=== PATIENT | female | born 1980 | race Caucasian/White ===

== ENCOUNTER 2017-07-05 11:47 | Emergency (ER) | payer BC, OTHER ==
[2017-07-05 11:53] VITALS: TEMP 98
[2017-07-05] MEDS ORDERED: SODIUM CHLORIDE 0.9% 1,000 ML IV ONE (12:03)
[2017-07-05 12:27] LABS: Basophils % (A) 0 %; CH 29.6; CHCM 33.1; Eosinophils # (A) 0.2 k/uL (0-0.7); Eosinophils % (A) 2 %; HCT 38.5 % (34.0-46.0); HDW 2.41; HGB 12.3 gm/dL (11.4-16.0); Luc # (Auto) 0.06; Luc % (Auto) 1; Lymphocytes # (A) 2.3 k/uL (1.0-4.8); Lymphocytes % (A) 21 %; MCH 28.7 pg (25.0-35.0); MCHC 31.9 g/dL (31.0-37.0); MCV 89.8 fL (80.0-100.0); Mean Platelet Volume 7.1; Monocytes # (A) 0.3 k/uL (0-1.0); Monocytes % (A) 3 %; Neutrophils % (A) 73 %; RBC 4.29 m/uL (3.80-5.40); RDW 13.3 % (11.5-15.5); WBC (Perox) 10.72
[2017-07-05 12:49] LABS: ALT 27 U/L (9-52); AST 21 U/L (14-36); Alkaline Phosphatase 81 U/L (38-126); Anion Gap 10 mmol/L; Blood Urea Nitrogen 6 mg/dL (7-17); Calcium 8.9 mg/dL (8.4-10.2); Carbon Dioxide 18 mmol/L (22-30); Chloride 109 mmol/L (98-107); Glucose 114 mg/dL (74-99); Magnesium 1.6 mg/dL (1.6-2.3); Non-African American GFR(MDRD) >60 (>60 ml/min/1.73 sqM); Phosphorous 3.3 mg/dL (2.5-4.5); Sodium 137 mmol/L (137-145); Total Bilirubin 0.3 mg/dL (0.2-1.3); Total Protein 6.3 g/dL (6.3-8.2)
[2017-07-05 12:58] VITALS: RESP 18
[2017-07-05 12:59] LABS: Prothrombin Time 9.9 sec (9.0-12.0)
--- NOTE | 2017-07-05 13:10 | ED ---
General Adult HPI - General Chief complaint: Vaginal Bleeding Stated complaint: bleeding Time Seen by Provider: 07/05/17 11:57 Source: patient, RN notes reviewed, old records reviewed Mode of arrival: wheelchair Limitations: no limitations - History of Present Illness Initial comments: This is a 37-year-old female to the ER for evaluation regarding vaginal bleeding. Patient is a prior miscarriage currently undergoing miscarriage. Patient states she is having significant bleeding today. She states she is about 10 weeks . No nausea no vomiting no feelings of lightheadedness or dizziness. Patient has had multiple Occasions with prior pregnancies including preeclampsia high blood pressure and diabetes. Patient states she has been having some bleeding for a few days and knows that she was having a miscarriage but the bleeding was more excessive today and with clots. Patient has mild abdominal cramping but no pain. - Related Data Home Medications Medication Instructions Recorded Confirmed Aspirin [Adult Low Dose Aspirin EC] 81 mg PO DAILY 07/05/17 07/05/17 HYDROcodone/APAP 5-325MG [[place] 1 tab PO Q4HR PRN 07/05/17 07/05/17 5-325] Ibuprofen [Motrin] 600 mg PO Q6HR PRN 07/05/17 07/05/17 Ranitidine HCl [Zantac] 150 mg PO HS 07/05/17 07/05/17 Allergies Allergy/AdvReac Type Severity Reaction Status Date / Time adhesive Allergy Verified 07/05/17 12:11 albuterol Allergy Verified 07/05/17 12:11 amoxicillin Allergy Verified 07/05/17 12:11 ampicillin Allergy Verified 07/05/17 12:11 azithromycin [From Zithromax] Allergy Verified 07/05/17 12:11 erythromycin base Allergy Verified 07/05/17 12:11 latex Allergy Verified 07/05/17 12:11 penicillin V Allergy Verified 07/05/17 12:11 Review of Systems ROS Statement: Those systems with pertinent positive or pertinent negative responses have been documented in the HPI. ROS Other: All systems not noted in ROS Statement are negative. Past Medical History Past Medical History: Myocardial Infarction ([place]) History of Any Multi-Drug Resistant Organisms: MRSA Date of last positivie culture/infection: 2014 MDRO Source:: abscess abdomen Past Surgical History: Section Past Psychological History: No Psychological Hx Reported Smoking Status: Current every day smoker Past Alcohol Use History: None Reported Past Drug Use History: None Reported General Exam Limitations: no limitations General appearance: alert, in no apparent distress Head exam: Present: atraumatic, normocephalic, normal inspection Eye exam: Present: normal appearance, PERRL, EOMI. Absent: scleral icterus, conjunctival injection, periorbital swelling ENT exam: Present: normal exam, mucous membranes moist Neck exam: Present: normal inspection. Absent: tenderness, meningismus, lymphadenopathy Respiratory exam: Present: normal lung sounds bilaterally. Absent: respiratory distress, wheezes, rales, rhonchi, stridor Cardiovascular Exam: Present: regular rate, normal rhythm, normal heart sounds. Absent: systolic murmur, diastolic murmur, rubs, gallop, clicks GI/Abdominal exam: Present: soft, normal bowel sounds. Absent: distended, tenderness, guarding, rebound, rigid Extremities exam: Present: normal inspection, full ROM, normal capillary refill. Absent: tenderness, pedal edema, joint swelling, calf tenderness Back exam: Present: normal inspection Neurological exam: Present: alert, oriented X3, CN II-XII intact Psychiatric exam: Present: normal affect, normal mood Skin exam: Present: warm, dry, intact, normal color. Absent: rash Course Vital Signs 07/05/17 07/05/17 07/05/17 11:49 12:53 13:00 Temperature 98 F Pulse Rate 104 H 80 89 Respiratory 16 18 18 Rate Blood Pressure 134/77 128/75 118/70 O2 Sat by Pulse 100 96 97 Oximetry 07/05/17 14:00 Temperature Pulse Rate 87 Respiratory 18 Rate Blood Pressure 109/62 O2 Sat by Pulse 98 Oximetry - Reevaluation(s) Reevaluation #1: 07/05/17 13:09 The patient's resting comfortably at this time, no significant bleeding noted Reevaluation #2: 07/05/17 14:15 Vaginal exam completed, blood evacuated from patient's vaginal vault Medical Decision Making - Medical Decision Making 37 female currently going to miscarriage, labwork is normal he will is normal, patient is asymptomatic, patient's bleeding is persistent. Patient will be discharged home - Lab Data Result diagrams: 07/05/17 12:19 07/05/17 12:19 Lab Results 07/05/17 07/05/17 07/05/17 Range/Units 12:19 12:19 12:19 WBC (3.8-10.6) k/uL RBC (3.80-5.40) m/uL Hgb (11.4-16.0) gm/dL Hct (34.0-46.0) % MCV (80.0-100.0) fL MCH (25.0-35.0) pg MCHC (31.0-37.0) g/dL RDW (11.5-15.5) % Plt Count (150-450) k/uL Neutrophils % % Lymphocytes % % Monocytes % % Eosinophils % % Basophils % % Neutrophils # (1.3-7.7) k/uL Lymphocytes # (1.0-4.8) k/uL Monocytes # (0-1.0) k/uL Eosinophils # (0-0.7) k/uL Basophils # (0-0.2) k/uL PT 9.9 (9.0-12.0) sec INR 1.0 (<1.2) APTT 23.0 (22.0-30.0) sec Sodium 137 (137-145) mmol/L Potassium 4.0 (3.5-5.1) mmol/L Chloride 109 H (98-107) mmol/L Carbon Dioxide 18 L (22-30) mmol/L Anion Gap 10 mmol/L BUN 6 L (7-17) mg/dL Creatinine 0.61 (0.52-1.04) mg/dL Est GFR (MDRD) Af Amer >60 (>60 ml/min/1.73 sqM) Est GFR (MDRD) Non-Af >60 (>60 ml/min/1.73 sqM) Glucose 114 H (74-99) mg/dL Calcium 8.9 (8.4-10.2) mg/dL Phosphorus 3.3 (2.5-4.5) mg/dL Magnesium 1.6 (1.6-2.3) mg/dL Total Bilirubin 0.3 (0.2-1.3) mg/dL AST 21 (14-36) U/L ALT 27 (9-52) U/L Alkaline Phosphatase 81 (38-126) U/L Total Protein 6.3 (6.3-8.2) g/dL Albumin 3.5 (3.5-5.0) g/dL HCG, Quant 2574.6 mIU/mL Blood Type A Positive Blood Type Recheck CABO Indicated Antibody Screen NEGATIVE Spec Expiration Date 07/08/2017231807/05/17 Range/Units 12:19 WBC 11.0 H (3.8-10.6) k/uL RBC 4.29 (3.80-5.40) m/uL Hgb 12.3 (11.4-16.0) gm/dL Hct 38.5 (34.0-46.0) % MCV 89.8 (80.0-100.0) fL MCH 28.7 (25.0-35.0) pg MCHC 31.9 (31.0-37.0) g/dL RDW 13.3 (11.5-15.5) % Plt Count 273 (150-450) k/uL Neutrophils % 73 % Lymphocytes % 21 % Monocytes % 3 % Eosinophils % 2 % Basophils % 0 % Neutrophils # 8.0 H (1.3-7.7) k/uL Lymphocytes # 2.3 (1.0-4.8) k/uL Monocytes # 0.3 (0-1.0) k/uL Eosinophils # 0.2 (0-0.7) k/uL Basophils # 0.0 (0-0.2) k/uL PT (9.0-12.0) sec INR (<1.2) APTT (22.0-30.0) sec Sodium (137-145) mmol/L Potassium (3.5-5.1) mmol/L Chloride (98-107) mmol/L Carbon Dioxide (22-30) mmol/L Anion Gap mmol/L BUN (7-17) mg/dL Creatinine (0.52-1.04) mg/dL Est GFR (MDRD) Af Amer (>60 ml/min/1.73 sqM) Est GFR (MDRD) Non-Af (>60 ml/min/1.73 sqM) Glucose (74-99) mg/dL Calcium (8.4-10.2) mg/dL Phosphorus (2.5-4.5) mg/dL Magnesium (1.6-2.3) mg/dL Total Bilirubin (0.2-1.3) mg/dL AST (14-36) U/L ALT (9-52) U/L Alkaline Phosphatase (38-126) U/L Total Protein (6.3-8.2) g/dL Albumin (3.5-5.0) g/dL HCG, Quant mIU/mL Blood Type Blood Type Recheck Antibody Screen Spec Expiration Date - Radiology Data Radiology results: report reviewed (Ultrasound positive for demise), image reviewed Disposition Clinical Impression: Incomplete , Missed , Vaginal bleeding Disposition: HOME SELF-CARE Condition: Good Instructions: Miscarriage (ED) Referrals: Kecia Lopez MD [Primary Care Provider] - 1-2 days
[2017-07-05] MEDS ORDERED: MORPHINE SULFATE 10 MG/ML SYRINGE IVP STA (13:11)
[2017-07-05] MEDS ORDERED: diphenhydrAMINE 50 MG/ML 1 ML VIAL IVP STA (13:33)
--- NOTE | 2017-07-05 13:52 | US ---
EXAMINATION TYPE: US OB <= 14 wk fetus DATE OF EXAM: 07/05/2017 COMPARISON: NONE CLINICAL HISTORY: Patient having heavy bleeding and severe cramping. Patient states that she has know for 3 or 4 weeks that she did not have a viable . They were waiting for her to miscarry due to the fact that she is not a candidate for D &C due the fact that she recently had a heart attack. Patient morbidly obese. EXAM PERFORMED: Transabdominal (TA) EXAM MEASUREMENTS: GESTATIONAL AGE / DATING Physician Established: not established Dates by LMP: (14 weeks/0 days) EDC: 01/03/18 Dates by First Scan: not available Dates by Current Scan for: Unable to date by today's study MATERNAL ANATOMY Uterus: 12.5 x 6.2 x 7.2cm Right Ovary: 2.4 x 1.8 x1.8cm Left Ovary: 3.4 x 2.5 x 3.0cm Post CDS / Adnexa: wnl GESTATION / SURVEY MSD: 1.7cm (6 weeks/3 days) Date of LMP: 03/29/17 Probable gestational sac seen in lower uterine segment. Findings suggestive of a cystic focus associated with the left ovary IMPRESSION: Transabdominal imaging shows possible gestational sac as described. Imaging not optimal. Follow-up as indicated. No pole identified.
[2017-07-05 14:04] VITALS: BP 109/62; PULSE 87
== END 2017-07-05 15:13 | disposition home or self-care (01) ==
LOC: EC 11:47
DX: O03.4 Incomplete spontaneous abortion without complication (principal); O99.411 Diseases of the circulatory system complicating pregnancy, first trimester; I25.2 Old myocardial infarction; O99.331 Smoking (tobacco) complicating pregnancy, first trimester; F17.200 Nicotine dependence, unspecified, uncomplicated; Z3A.10 10 weeks gestation of pregnancy; Z86.14 Personal history of Methicillin resistant Staphylococcus aureus infection; Z79.82 Long term (current) use of aspirin; Z79.899 Other long term (current) drug therapy; Z88.0 Allergy status to penicillin; Z88.1 Allergy status to other antibiotic agents; Z91.040 Latex allergy status; Z88.8 Allergy status to other drugs, medicaments and biological substances; Z91.048 Other nonmedicinal substance allergy status
CPT/HCPCS: 99284 ×2; 96374 ×2; 96361 ×2; 36415; 86900; 86901; 80053; 83735; 84100; 85025; 85610; 85730; 86850; 84702; 76801; J2270

== ENCOUNTER 2017-07-06 11:40 | Emergency (ER) | payer BC ==
[2017-07-06] MEDS ORDERED: KETOROLAC 30 MG/ML 1 ML VIAL IVP STA (12:10)
[2017-07-06] MEDS ORDERED: LORazepam 2 MG/ML INJ IV STA (12:10)
[2017-07-06 12:40] LABS: Basophils % (A) 0 %; CH 29.3; CHCM 32.9; Eosinophils # (A) 0.2 k/uL (0-0.7); Eosinophils % (A) 1 %; HCT 31.7 % (34.0-46.0); HDW 2.47; HGB 10.3 gm/dL (11.4-16.0); Luc # (Auto) 0.07; Luc % (Auto) 0; Lymphocytes # (A) 1.7 k/uL (1.0-4.8); Lymphocytes % (A) 12 %; MCH 29.1 pg (25.0-35.0); MCHC 32.5 g/dL (31.0-37.0); MCV 89.5 fL (80.0-100.0); Mean Platelet Volume 7.4; Monocytes # (A) 0.4 k/uL (0-1.0); Monocytes % (A) 3 %; Neutrophils # (A) 12.7 k/uL (1.3-7.7); Neutrophils % (A) 84 %; RBC 3.54 m/uL (3.80-5.40); RDW 13.4 % (11.5-15.5); WBC (Perox) 14.38
[2017-07-06 12:45] LABS: Appearance,Urine Cloudy (Clear); Bilirubin,Urine 2+ (Negative); Glucose,Urine (UA) Negative (Negative); Ketones,Urine Trace (Negative); Leukocyte Esterase,Urine Moderate (Negative); Mucus,Urine Few /hpf; Nitrite,Urine Negative (Negative); Particle Count 7705; Protein,Urine 1+ (Negative); RBC,Urine >182 /hpf (0-5); Specific Gravity,Urine 1.025 (1.001-1.035); Squamous Epithelial Cell,Urine 1 /hpf (0-4); UA Billing (MACRO vs. MICRO) MICRO; WBC,Urine 9 /hpf (0-5)
--- NOTE | 2017-07-06 13:02 | ED ---
Abdominal Pain HPI - General Chief Complaint: Abdominal Pain Stated Complaint: Abd Pain Time Seen by Provider: 07/06/17 11:46 Source: patient, EMS, RN notes reviewed Mode of arrival: EMS Limitations: no limitations - History of Present Illness Initial Comments: This a 37-year-old female presents emergency Department via EMS from chief complaint abdominal pain and vaginal bleeding. Patient states that she found out was in April and was told she was having a miscarriage at the end of May. Patient states she's been waiting to pass products of conception as she was not a candidate for D&C as she had an FL in April. Patient's was seen at [facility] and [place] for the FL. Patient states that she started bleeding was seen here yesterday and had an ultrasound and lab work. Patient was given pain medication with pain medication has not helped. Patient states that the bleeding has slowed but continues. She did have a pelvic exam yesterday in which her cervix was closed at that time. Patient states that she was seen at [facility] in [facility]. Patient states that her 2 previous pregnancies to this she was high risk was seen and [facility]. - Related Data Home Medications Medication Instructions Recorded Confirmed HYDROcodone/APAP 5-325MG [[place] 1 tab PO Q6H PRN 07/05/17 07/06/17 5-325] Ibuprofen [Motrin] 600 mg PO Q6HR PRN 07/05/17 07/06/17 Ranitidine HCl [Zantac] 150 mg PO HS 07/05/17 07/06/17 Allergies Allergy/AdvReac Type Severity Reaction Status Date / Time adhesive Allergy Unknown Verified 07/06/17 12:25 albuterol Allergy Unknown Verified 07/06/17 12:25 amoxicillin Allergy Unknown Verified 07/06/17 12:25 ampicillin Allergy Unknown Verified 07/06/17 12:25 azithromycin [From Zithromax] Allergy Unknown Verified 07/06/17 12:25 erythromycin base Allergy Unknown Verified 07/06/17 12:25 latex Allergy Unknown Verified 07/06/17 12:25 penicillin V Allergy Unknown Verified 07/06/17 12:25 Review of Systems ROS Statement: Those systems with pertinent positive or pertinent negative responses have been documented in the HPI. ROS Other: All systems not noted in ROS Statement are negative. Past Medical History Past Medical History: Myocardial Infarction ([place]) History of Any Multi-Drug Resistant Organisms: MRSA Date of last positivie culture/infection: 2014 MDRO Source:: abscess abdomen Past Surgical History: Section, Cholecystectomy, Heart Catheterization Additional Past Surgical History / Comment(s): right wrist surgery, carpal tunnel, MRSA S/P wound. left knee surgery Past Psychological History: No Psychological Hx Reported Smoking Status: Current every day smoker Past Alcohol Use History: None Reported Past Drug Use History: None Reported General Exam Limitations: no limitations General appearance: alert, in no apparent distress Head exam: Present: atraumatic, normocephalic, normal inspection Respiratory exam: Present: normal lung sounds bilaterally. Absent: respiratory distress, wheezes, rales, rhonchi, stridor Cardiovascular Exam: Present: regular rate, normal rhythm, normal heart sounds. Absent: systolic murmur, diastolic murmur, rubs, gallop, clicks GI/Abdominal exam: Present: soft, tenderness (Moderate lower abdominal), normal bowel sounds. Absent: distended, guarding, rebound, rigid External exam: Present: normal external exam, other (Exam performed with Julia HODGE) Speculum exam: Present: vaginal bleeding Back exam: Absent: CVA tenderness (R), CVA tenderness (L) Skin exam: Present: warm, dry, intact, normal color. Absent: rash Course Vital Signs 07/06/17 07/06/17 11:41 16:44 Temperature 98.3 F Pulse Rate 116 H 95 Respiratory 20 16 Rate Blood Pressure 132/75 114/72 O2 Sat by Pulse 100 98 Oximetry Medical Decision Making - Medical Decision Making 37-year-old female presented for vaginal bleeding and pelvic pain. Patient does have some retained products noted, patient's hemoglobin has dropped from 12.4-90.4. Patient still having bleeding noted. Patient case was discussed with on-call [employer] Dr. Sanders who recommends the patient be transferred back to [facility] secondary to patient having an FL and evaluated there. Patient's records were obtained from [facility] which showed LAD dissection with healing at that time. Patient is high risk for a procedures. Patient will be sent down there for repeat hemoglobins and if needed D&C under the supervisor enrobing supervision who saw her for her FL. Dr mccann did discuss case with for [facility] - Lab Data Result diagrams: 07/06/17 16:09 Lab Results 07/06/17 07/06/17 07/06/17 Range/Units 12:25 12:25 12:25 WBC 15.0 H (3.8-10.6) k/uL RBC 3.54 L (3.80-5.40) m/uL Hgb 10.3 L (11.4-16.0) gm/dL Hct 31.7 L (34.0-46.0) % MCV 89.5 (80.0-100.0) fL MCH 29.1 (25.0-35.0) pg MCHC 32.5 (31.0-37.0) g/dL RDW 13.4 (11.5-15.5) % Plt Count 253 (150-450) k/uL Neutrophils % 84 % Lymphocytes % 12 % Monocytes % 3 % Eosinophils % 1 % Basophils % 0 % Neutrophils # 12.7 H (1.3-7.7) k/uL Lymphocytes # 1.7 (1.0-4.8) k/uL Monocytes # 0.4 (0-1.0) k/uL Eosinophils # 0.2 (0-0.7) k/uL Basophils # 0.0 (0-0.2) k/uL HCG, Quant 1494.9 mIU/mL Urine Color Light Red Urine Appearance Cloudy H (Clear) Urine pH 6.0 (5.0-8.0) Ur Specific [place] 1.025 (1.001-1.035) Urine Protein 1+ H (Negative) Urine Glucose (UA) Negative (Negative) Urine Ketones Trace H (Negative) Urine Blood Large H (Negative) Urine Nitrite Negative (Negative) Urine Bilirubin 2+ H (Negative) Urine Urobilinogen 3.0 (<2.0) mg/dL Ur Leukocyte Esterase Moderate H (Negative) Urine RBC >182 H (0-5) /hpf Urine WBC 9 H (0-5) /hpf Ur Squamous Epith Cells 1 (0-4) /hpf Hyaline Casts 4 H (0-2) /lpf Urine Mucus Few H (None) /hpf 07/06/17 Range/Units 16:09 WBC 12.5 H (3.8-10.6) k/uL RBC 3.27 L (3.80-5.40) m/uL Hgb 9.4 L (11.4-16.0) gm/dL Hct 29.5 L (34.0-46.0) % MCV 90.1 (80.0-100.0) fL MCH 28.8 (25.0-35.0) pg MCHC 32.0 (31.0-37.0) g/dL RDW 13.4 (11.5-15.5) % Plt Count 239 (150-450) k/uL Neutrophils % 79 % Lymphocytes % 16 % Monocytes % 3 % Eosinophils % 1 % Basophils % 0 % Neutrophils # 9.9 H (1.3-7.7) k/uL Lymphocytes # 2.0 (1.0-4.8) k/uL Monocytes # 0.4 (0-1.0) k/uL Eosinophils # 0.1 (0-0.7) k/uL Basophils # 0.0 (0-0.2) k/uL HCG, Quant mIU/mL Urine Color Urine Appearance (Clear) Urine pH (5.0-8.0) Ur Specific [place] (1.001-1.035) Urine Protein (Negative) Urine Glucose (UA) (Negative) Urine Ketones (Negative) Urine Blood (Negative) Urine Nitrite (Negative) Urine Bilirubin (Negative) Urine Urobilinogen (<2.0) mg/dL Ur Leukocyte Esterase (Negative) Urine RBC (0-5) /hpf Urine WBC (0-5) /hpf Ur Squamous Epith Cells (0-4) /hpf Hyaline Casts (0-2) /lpf Urine Mucus (None) /hpf Disposition Clinical Impression: Anemia, Incomplete miscarriage, Vaginal bleeding Narrative: History of LAD dissection Disposition: OTHER INSTITUTION NOT DEFINED Condition: Stable Referrals: Kecia Lopez MD [Primary Care Provider] - 1-2 days - Out of Hospital Transfer - Req. Specs Out of Hospital Transfer - Requested Specifics: Other Emergency Center ([facility])
[2017-07-06] MEDS ORDERED: HYDROmorphone 1 MG/ML 1 ML SYRINGE IVP STA ×2 (13:22→18:15)
--- NOTE | 2017-07-06 16:12 | US ---
EXAMINATION TYPE: US OB <=14 wks transvag DATE OF EXAM: 07/06/2017 COMPARISON: TA US 07/05/2017 CLINICAL HISTORY: Pain. EC patient now with severe midline pelvic pain with vaginal bleeding x 3 days ; known non viable IUP per patient; D&C not performed due to MT; ; MT on 05-08-2017; right arm car diac catheterization 07/03/2017 EXAM PERFORMED: Transvaginal (TV) and Transabdominal (TA) EXAM MEASUREMENTS: GESTATIONAL AGE / DATING Physician Established: Not established Dates by LMP: 03/29/2017 (14 weeks/1 day) EDC: 01/03/2018 Dates by First Scan: not here Dates by Current Scan for: Gestational sac/amniotic sac imaged in ROMY and cervix on Today's US (6 wee ks/5 days) MATERNAL ANATOMY Uterus: 12.8 x 6.7 x 6.2cm Right Ovary: 2.7 x 3.3 x 1.4cm TA US Left Ovary: 3.1 x 2.1 x 2.5cm TV US Post CDS / Adnexa: wnl Presence of free fluid: no Presence of corpus luteal cyst: possibly in left ovary Presence of subchorionic bleed: no GESTATION / SURVEY CRL: none seen/empty amniotic sac MSD: 2.2cm and is irregular in appearance in ROMY and cervix; (6 weeks/5 days) Yolk Sac (normal less than 6mm): 2.6mm Heart Rate: NA as no pole is seen IUP: Gestational sac and Amniotic sac is in abnormal location inn ROMY /cervix Date of LMP: 03/29/2017 Beta HcG (if available): 1494.9 Single, gestational sac/empty amniotic sac in ROMY and Cervix; no pole is noted. Known nonviable IUP reported by patient. IMPRESSION: Suspected blighted ovum. The estimated gestational age should be 6 weeks 5 days based on mean sac beth meter which is irregular. Typically a pole with heart rate is identified at this gestational ag e.
[2017-07-06 16:22] LABS: Basophils % (A) 0 %; CH 29.1; CHCM 32.5; Eosinophils # (A) 0.1 k/uL (0-0.7); Eosinophils % (A) 1 %; HCT 29.5 % (34.0-46.0); HDW 2.48; HGB 9.4 gm/dL (11.4-16.0); Luc # (Auto) 0.06; Luc % (Auto) 0; Lymphocytes % (A) 16 %; MCH 28.8 pg (25.0-35.0); MCV 90.1 fL (80.0-100.0); Mean Platelet Volume 6.8; Monocytes # (A) 0.4 k/uL (0-1.0); Monocytes % (A) 3 %; Neutrophils # (A) 9.9 k/uL (1.3-7.7); Neutrophils % (A) 79 %; RBC 3.27 m/uL (3.80-5.40); RDW 13.4 % (11.5-15.5); WBC 12.5 k/uL (3.8-10.6); WBC (Perox) 12.49
[2017-07-06 16:45] VITALS: BP 114/72
[2017-07-06 18:08] VITALS: PULSE 91; RESP 18; TEMP 97.4
== END 2017-07-06 19:21 | disposition other institution (70) ==
LOC: EC 11:40
DX: O03.4 Incomplete spontaneous abortion without complication (principal); O99.011 Anemia complicating pregnancy, first trimester; D64.9 Anemia, unspecified; O99.331 Smoking (tobacco) complicating pregnancy, first trimester; F17.200 Nicotine dependence, unspecified, uncomplicated; Z3A.01 Less than 8 weeks gestation of pregnancy; Z86.14 Personal history of Methicillin resistant Staphylococcus aureus infection; Z79.899 Other long term (current) drug therapy; Z88.0 Allergy status to penicillin; Z88.1 Allergy status to other antibiotic agents; Z91.040 Latex allergy status; Z91.048 Other nonmedicinal substance allergy status; Z88.8 Allergy status to other drugs, medicaments and biological substances; Z98.890 Other specified postprocedural states
CPT/HCPCS: 36415; 85025; 81001; 84702; 87086; 76801; 76817; 99285; 96374; 96375 ×2; 96376; J2060; J1885; J1170

== ENCOUNTER 2018-07-15 13:57 | Observation (INO) | payer BC, OTHER ==
[2018-07-15] MEDS ORDERED: ASPIRIN 81 MG PO STA (14:26)
[2018-07-15] MEDS ORDERED: NITROGLYCERIN OINT 1 INCH/GM PACKET TOPICAL STA (14:26)
[2018-07-15 14:47] LABS: Basophils % (A) 1 %; Eosinophils # (A) 0.2 k/uL (0-0.7); Eosinophils % (A) 2 %; HGB 13.5 gm/dL (11.4-16.0); Lymphocytes # (A) 2.6 k/uL (1.0-4.8); Lymphocytes % (A) 27 %; MCH 29.5 pg (25.0-35.0); MCHC 33.8 g/dL (31.0-37.0); MCV 87.4 fL (80.0-100.0); Mean Platelet Volume 6.9; Monocytes # (A) 0.4 k/uL (0-1.0); Monocytes % (A) 4 %; Neutrophils # (A) 6.3 k/uL (1.3-7.7); Neutrophils % (A) 65 %; Platelet Count 291 k/uL (150-450); RBC 4.58 m/uL (3.80-5.40); RDW 13.8 % (11.5-15.5); WBC 9.6 k/uL (3.8-10.6)
--- NOTE | 2018-07-15 14:51 | ED ---
General Adult HPI - General Chief complaint: Chest Pain Stated complaint: chest pain Time Seen by Provider: 07/15/18 14:00 Source: patient, RN notes reviewed Mode of arrival: ambulatory Limitations: no limitations - History of Present Illness Initial comments: This is a 38-year-old female presents emergency Department with a past medical history significant for dissecting coronary artery and bypass of the LAD. Patient states she also has a history of pulmonary embolisms and DVTs so she is on eliquis. Patient states for the last 2 days she's been having chest pain center of her chest with no radiation. Patient states today the pain got considerably worse approximate one hour prior to arrival. Patient denies any difficulty breathing or shortness of breath. Patient denies any sweating episodes. Patient denies any nausea vomiting diarrhea. Patient denies any abdominal pain. Patient denies any lightheadedness dizziness or near syncopal episode. Patient states this pain feels same pain she has with her previous heart attacks. Patient states she has had multiple heart attacks in the past. Patient denies any recent fever chills or cough. - Related Data Home Medications Medication Instructions Recorded Confirmed Ranitidine HCl [Zantac] 150 mg PO HS 07/05/17 07/15/18 Acetaminophen Tab [Tylenol Tab] 1,000 mg PO Q6HR PRN 07/15/18 07/15/18 Apixaban [Eliquis] 5 mg PO BID 07/15/18 07/15/18 SILVER sulfADIAZINE Cream 1 applic TOPICAL DAILY PRN 07/15/18 07/15/18 [Silvadene 1% Cream] Allergies Allergy/AdvReac Type Severity Reaction Status Date / Time adhesive Allergy Unknown Verified 07/15/18 15:56 albuterol Allergy Unknown Verified 07/15/18 15:56 amoxicillin Allergy Unknown Verified 07/15/18 15:56 ampicillin Allergy Unknown Verified 07/15/18 15:56 azithromycin [From Zithromax] Allergy Unknown Verified 07/15/18 15:56 erythromycin base Allergy Unknown Verified 07/15/18 15:56 latex Allergy Unknown Verified 07/15/18 15:56 penicillin V Allergy Unknown Verified 07/15/18 15:56 Review of Systems ROS Statement: Those systems with pertinent positive or pertinent negative responses have been documented in the HPI. ROS Other: All systems not noted in ROS Statement are negative. Past Medical History Past Medical History: Deep Vein Thrombosis (DVT), Myocardial Infarction ([place]) History of Any Multi-Drug Resistant Organisms: MRSA Date of last positivie culture/infection: 2014 MDRO Source:: abscess abdomen Past Surgical History: Section, Cholecystectomy, Coronary Bypass/CABG, Heart Catheterization Additional Past Surgical History / Comment(s): right wrist surgery, carpal tunnel, MRSA S/P wound. left knee surgery Past Psychological History: No Psychological Hx Reported Smoking Status: Current every day smoker Past Alcohol Use History: None Reported Past Drug Use History: None Reported General Exam - General Exam Comments Initial Comments: GENERAL: Patient is well-developed and well-nourished. Patient is nontoxic and well- hydrated and is in mild distress. ENT: Neck is soft and supple. No significant lymphadenopathy is noted. Oropharynx is clear. Moist mucous membranes. Neck has full range of motion without eliciting any pain. EYES: The sclera were anicteric and conjunctiva were pink and moist. Extraocular movements were intact and pupils were equal round and reactive to light. Eyelids were unremarkable. PULMONARY: Unlabored respirations. Good breath sounds bilaterally. No audible rales rhonchi or wheezing was noted. CARDIOVASCULAR: There is a regular rate and rhythm without any murmurs gallops or rubs. ABDOMEN: Soft and nontender with normal bowel sounds. No palpable organomegaly was noted. There is no palpable pulsatile mass. SKIN: Skin is clear with no lesions or rashes and otherwise unremarkable. NEUROLOGIC: Patient is alert and oriented x3. Cranial nerves II through XII are grossly intact. Motor and sensory are also intact. Normal speech, volume and content. Symmetrical smile. MUSCULOSKELETAL: Normal extremities with adequate strength and full range of motion. No lower extremity swelling or edema. No calf tenderness. LYMPHATICS: No significant lymphadenopathy is noted PSYCHIATRIC: Normal psychiatric evaluation. Normal interpersonal interactions appears functionally intact in deals appropriately with others. No signs of depression. No signs of anxiety. Limitations: no limitations Course Vital Signs 07/15/18 07/15/18 07/15/18 13:58 14:20 14:37 Temperature 98.2 F Pulse Rate 106 H 100 Pulse Rate [ 100 Apical] Respiratory 22 18 Rate Blood Pressure 120/79 134/97 O2 Sat by Pulse 99 97 Oximetry 07/15/18 07/15/18 14:55 15:25 Temperature Pulse Rate 97 89 Pulse Rate [ Apical] Respiratory 18 18 Rate Blood Pressure 140/92 121/88 O2 Sat by Pulse 99 96 Oximetry Medical Decision Making - Medical Decision Making EKG shows normal sinus rhythm at 97 bpm MO interval 138 QRS is 78 QT interval 3: 30 for QT C is 424. Patient's EKG shows no ST segment elevation or depression or T wave abnormalities are noted. Repeat EKG was done because the first EKG had quite a bit of noise in the inferior leads. Second EKG showed normal sinus rhythm at 91 bpm MO interval is 144 QRS is 82 QT interval 356 QTC is 437. Patient's EKG shows no ST segment elevation. Chest x-ray shows no acute abnormality. Patient's pain improved significantly while in the emergency department. I spoke with Dr. Ulysses Sheehan came down and saw the patient immediately. I wrote admitting orders I consult cardiology. - Lab Data Result diagrams: 07/15/18 14:29 07/15/18 14:29 Lab Results 07/15/18 07/15/18 07/15/18 Range/Units 14:29 14:29 14:29 WBC 9.6 (3.8-10.6) k/uL RBC 4.58 (3.80-5.40) m/uL Hgb 13.5 (11.4-16.0) gm/dL Hct 40.0 (34.0-46.0) % MCV 87.4 (80.0-100.0) fL MCH 29.5 (25.0-35.0) pg MCHC 33.8 (31.0-37.0) g/dL RDW 13.8 (11.5-15.5) % Plt Count 291 (150-450) k/uL Neutrophils % 65 % Lymphocytes % 27 % Monocytes % 4 % Eosinophils % 2 % Basophils % 1 % Neutrophils # 6.3 (1.3-7.7) k/uL Lymphocytes # 2.6 (1.0-4.8) k/uL Monocytes # 0.4 (0-1.0) k/uL Eosinophils # 0.2 (0-0.7) k/uL Basophils # 0.0 (0-0.2) k/uL PT (9.0-12.0) sec INR (<1.2) APTT (22.0-30.0) sec Sodium 139 (137-145) mmol/L Potassium 4.1 (3.5-5.1) mmol/L Chloride 103 (98-107) mmol/L Carbon Dioxide 28 (22-30) mmol/L Anion Gap 8 mmol/L BUN 14 (7-17) mg/dL Creatinine 0.76 (0.52-1.04) mg/dL Est GFR (CKD-EPI)AfAm >90 (>60 ml/min/1.73 sqM) Est GFR (CKD-EPI)NonAf >90 (>60 ml/min/1.73 sqM) Glucose 107 H (74-99) mg/dL Calcium 9.6 (8.4-10.2) mg/dL Magnesium 2.0 (1.6-2.3) mg/dL Total Bilirubin 0.3 (0.2-1.3) mg/dL AST 19 (14-36) U/L ALT 29 (9-52) U/L Alkaline Phosphatase 80 (38-126) U/L Total Creatine Kinase 79 (30-135) U/L CK-MB (CK-2) 0.8 (0.0-2.4) ng/mL CK-MB (CK-2) Rel Index 1.0 Troponin I <0.012 (0.000-0.034) ng/mL Total Protein 7.1 (6.3-8.2) g/dL Albumin 4.0 (3.5-5.0) g/dL 07/15/18 Range/Units 14:29 WBC (3.8-10.6) k/uL RBC (3.80-5.40) m/uL Hgb (11.4-16.0) gm/dL Hct (34.0-46.0) % MCV (80.0-100.0) fL MCH (25.0-35.0) pg MCHC (31.0-37.0) g/dL RDW (11.5-15.5) % Plt Count (150-450) k/uL Neutrophils % % Lymphocytes % % Monocytes % % Eosinophils % % Basophils % % Neutrophils # (1.3-7.7) k/uL Lymphocytes # (1.0-4.8) k/uL Monocytes # (0-1.0) k/uL Eosinophils # (0-0.7) k/uL Basophils # (0-0.2) k/uL PT 9.7 (9.0-12.0) sec INR 1.0 (<1.2) APTT 22.2 (22.0-30.0) sec Sodium (137-145) mmol/L Potassium (3.5-5.1) mmol/L Chloride (98-107) mmol/L Carbon Dioxide (22-30) mmol/L Anion Gap mmol/L BUN (7-17) mg/dL Creatinine (0.52-1.04) mg/dL Est GFR (CKD-EPI)AfAm (>60 ml/min/1.73 sqM) Est GFR (CKD-EPI)NonAf (>60 ml/min/1.73 sqM) Glucose (74-99) mg/dL Calcium (8.4-10.2) mg/dL Magnesium (1.6-2.3) mg/dL Total Bilirubin (0.2-1.3) mg/dL AST (14-36) U/L ALT (9-52) U/L Alkaline Phosphatase (38-126) U/L Total Creatine Kinase (30-135) U/L CK-MB (CK-2) (0.0-2.4) ng/mL CK-MB (CK-2) Rel Index Troponin I (0.000-0.034) ng/mL Total Protein (6.3-8.2) g/dL Albumin (3.5-5.0) g/dL Disposition Clinical Impression: Chest pain Disposition: ADMITTED IP TO THIS [facility] Referrals: Kecia Lopez MD [Primary Care Provider] - 1-2 days Time of Disposition: 16:42
[2018-07-15 15:02] LABS: ALT 29 U/L (9-52); AST 19 U/L (14-36); Alkaline Phosphatase 80 U/L (38-126); Anion Gap 8 mmol/L; Blood Urea Nitrogen 14 mg/dL (7-17); Calcium 9.6 mg/dL (8.4-10.2); Carbon Dioxide 28 mmol/L (22-30); Chloride 103 mmol/L (98-107); Glucose 107 mg/dL (74-99); Potassium 4.1 mmol/L (3.5-5.1); Sodium 139 mmol/L (137-145); Total Bilirubin 0.3 mg/dL (0.2-1.3); Total Protein 7.1 g/dL (6.3-8.2)
--- NOTE | 2018-07-15 15:03 | XR ---
EXAMINATION TYPE: XR chest 2V DATE OF EXAM: 07/15/2018 COMPARISON: NONE HISTORY: Chest pain TECHNIQUE: Frontal and lateral views of the chest are obtained. FINDINGS: There is no focal air space opacity. No evidence for pneumothorax. No pleural effusion. The cardiac silhouette size is within normal limits. The osseous structures are grossly intact. IMPRESSION: 1. No acute cardiopulmonary process.
[2018-07-15 15:10] LABS: Creatine Kinase 79 U/L (30-135)
[2018-07-15] MEDS ORDERED: ACETAMINOPHEN TAB 500 MG TAB PO STA (15:11)
[2018-07-15 15:14] LABS: Partial Thromboplastin Time 22.2 sec (22.0-30.0); Prothrombin Time 9.7 sec (9.0-12.0)
[2018-07-15 15:23] LABS: Creatine Kinase MB 0.8 ng/mL (0.0-2.4); Troponin I <0.012 ng/mL (0.000-0.034)
[2018-07-15] MEDS ORDERED: NITROGLYCERIN SL TABS 0.4 MG TAB SUBLINGUAL PRN (16:42)
[2018-07-15] MEDS ORDERED: MORPHINE SULFATE 2 MG/ML SYRINGE IVP STA (21:24)
[2018-07-15] MEDS ORDERED: FAMOTIDINE 20 MG TAB PO SCH (21:30)
[2018-07-15 21:53] LABS: Creatine Kinase 65 U/L (30-135)
[2018-07-15] MEDS ORDERED: RX INFO: IV CONTRAST WAS GIVEN 1 EACH MISC MISCELLANE PRN (22:01)
[2018-07-15] MEDS ORDERED: guaiFENesin SYRUP 100MG/5ML 200 MG/10 ML CUP PO PRN (22:04)
[2018-07-15 22:07] LABS: Troponin I <0.012 ng/mL (0.000-0.034)
[2018-07-15 22:13] LABS: Creatine Kinase MB 0.7 ng/mL (0.0-2.4)
[2018-07-15] MEDS ORDERED: SODIUM CHLORIDE 0.9% 1,000 ML IV SCH (22:15)
[2018-07-15] MEDS ORDERED: ONDANSETRON 4 MG/2 ML VIAL IVP STA (22:37)
--- NOTE | 2018-07-15 23:02 | P.HPIM ---
History of Present Illness H&P Date: 07/15/18 Chief Complaint: Chest pain Patient is a 38-year-old female with a known history of coronary artery dissection and bypass of the LAD with open-heart surgery in October 2017, DVT of the left popliteal vein diagnosed in April 2018-currently on oral anticoagulation with eliquis came to ER with complaints of chest pain mainly mid retrosternal, swordlike patient and is radiating to the back.Patient states today the pain got considerably worse approximate one hour prior to arrival. Patient denies any difficulty breathing or shortness of breath. Patient denies any sweating episodes. Patient denies any nausea vomiting diarrhea. Patient denies any abdominal pain. Patient denies any lightheadedness dizziness or near syncopal episode. Patient states this pain feels same pain she has with her previous heart attacks. Patient has been having cold like symptoms with cough and very now since yesterday. Patient was initially diagnosed with LLE DVT in April 2018. Currently taking oral anticoagulation regularly. Patient says that she had a left lower extremity duplex scan done about a week ago at [facility] which showed chronic DVT. Patient is also complaining of increasing swelling of the left lower extremity compared to right and pain behind the knee as well. Patient takes Tylenol thousand milligrams every 6 hourly at home. Patient says that she had prior history of CO. Chest x-ray showed no acute cardiopulmonary process EKG showed normal sinus rhythm Troponin 1 negative. No other electrolyte abnormalities noted. PCP: Dr. Lopez Review of Systems Constitutional: Patient denies any fever or chills . No generalized weakness or weight loss. Abdomen: Patient denied nausea vomiting and diarrhea and abdominal pain. Cardiovascular: Patient does have sharp chest pain. No leg swelling. No palpitations.. Respiratory: Patient does have cough without sputum production. No shortness of breath Neurologic: Patient denied any numbness or tingling headache. Musculoskeletal: Patient denies any complaints of joint swelling or deformity. Skin: Negative Psychiatric: Negative Endocrine: No heat or cold intolerance. No recent weight gain. Genitourinary: No dysuria or hematuria. All other 14 point ROS negative except the above Past Medical History Past Medical History: Coronary Artery Disease (CAD), Deep Vein Thrombosis (DVT) , Myocardial Infarction ([place]), Pulmonary Embolus (PE) Last Myocardial Infarction Date:: 09/2017 History of Any Multi-Drug Resistant Organisms: MRSA Date of last positivie culture/infection: 2014 MDRO Source:: abscess abdomen Past Surgical History: Section, Cholecystectomy, Coronary Bypass/CABG, Heart Catheterization Additional Past Surgical History / Comment(s): right wrist surgery, carpal tunnel, MRSA S/P wound. left knee surgery Past Anesthesia/Blood Transfusion Reactions: No Reported Reaction Past Psychological History: No Psychological Hx Reported Smoking Status: Current every day smoker Past Alcohol Use History: None Reported Past Drug Use History: None Reported - Past Family History Mother Family Medical History: Cancer, CVA/TIA, Diabetes Mellitus, Myocardial Infarction ([place]), Renal Disease Additional Family Medical History / Comment(s): uterine cancer, artificial valves Father Additional Family Medical History / Comment(s): PAD Brother(s) Family Medical History: Coronary Artery Disease (CAD), Diabetes Mellitus Additional Family Medical History / Comment(s): 2 HEART STENTS, issue with heart valve Sister(s) Additional Family Medical History / Comment(s): psych issues Daughter(s) Family Medical History: No Reported History Son(s) Family Medical History: No Reported History Medications and Allergies Home Medications Medication Instructions Recorded Confirmed Type Ranitidine HCl [Zantac] 150 mg PO HS 07/05/17 07/15/18 History Acetaminophen Tab [Tylenol Tab] 1,000 mg PO Q6HR PRN 07/15/18 07/15/18 History Apixaban [Eliquis] 5 mg PO BID 07/15/18 07/15/18 History SILVER sulfADIAZINE Cream 1 applic TOPICAL DAILY PRN 07/15/18 07/15/18 History [Silvadene 1% Cream] Allergies Allergy/AdvReac Type Severity Reaction Status Date / Time adhesive Allergy Rash/Hives Verified 07/15/18 19:37 albuterol Allergy Anaphylaxis Verified 07/15/18 19:37 amoxicillin Allergy Anaphylaxis Verified 07/15/18 19:37 ampicillin Allergy Anaphylaxis Verified 07/15/18 19:37 azithromycin [From Zithromax] Allergy Anaphylaxis Verified 07/15/18 19:37 erythromycin base Allergy Anaphylaxis Verified 07/15/18 19:37 latex Allergy Rash/Hives Verified 07/15/18 19:37 penicillin V Allergy Anaphylaxis Verified 07/15/18 19:37 Physical Exam Vitals: Vital Signs Temp Pulse Pulse Pulse Resp BP BP 07/15/18 19:46 18 07/15/18 19:45 97.1 F L 89 18 100/62 07/15/18 16:00 92 18 125/92 07/15/18 15:25 89 18 121/88 07/15/18 14:55 97 18 140/92 07/15/18 14:37 100 07/15/18 14:20 100 18 134/97 07/15/18 13:58 98.2 F 106 H 22 120/79 Pulse Ox 07/15/18 19:46 07/15/18 19:45 97 07/15/18 16:00 100 07/15/18 15:25 96 07/15/18 14:55 99 07/15/18 14:37 07/15/18 14:20 97 07/15/18 13:58 99 Intake and Output 07/15/18 07/15/18 07/15/18 06:59 14:59 22:59 Other: Voiding Method Toilet Weight 127.006 kg PHYSICAL EXAMINATION: Patient is lying in the bed comfortably, no acute distress, awake alert and oriented. Morbidly obese.. HEENT: Normocephalic. Neck is supple. Pupils reactive. Nostrils clear. Oral cavity is moist. Ears reveal no drainage. Neck reveals no JVD, carotid bruits, or thyromegaly. CHEST EXAMINATION: Trachea is central. Symmetrical expansion. Bilateral rhonchi baseline. Midline scar present. Nonlabored breathing. CARDIAC: Normal S1, S2 with no gallops. No murmurs ABDOMEN: Soft. Bowel sounds normal. No organomegaly. No abdominal bruits. Extremities: Minimal swelling of Left lower extremity compared to right. No clubbing or cyanosis Neurologically awake, alert, oriented x3 with well-coordinated movements. No focal deficits noted Skin: No rash or skin lesions. Psychiatric: Coperative. Nonsuicidal Musculoskeletal: No joint swelling or deformity. Normal range of motion. Results CBC & Chem 7: 07/15/18 14:29 07/15/18 14:29 Labs: Abnormal Lab Results - Last 24 Hours (Table) 07/15/18 Range/Units 14:29 Glucose 107 H (74-99) mg/dL Thrombosis Risk Factor Assmnt - Choose All That Apply Any of the Below Risk Factors Present?: Yes Each Factor Represents 1 point: Obesity (BMI >25), Swollen legs (current) Other Risk Factors: Yes Each Risk Factor Represents 3 Points: History of DVT/PE Other congenital or acquired thrombophilia - If yes, enter type in comment: No Thrombosis Risk Factor Assessment Total Risk Factor Score: 5 Thrombosis Risk Factor Assessment Level: High Risk Assessment and Plan Assessment: Chest pain radiating to the back with a known history of coronary artery dissection. Cough and cold-like symptoms 1 day History of coronary artery dissection and LAD stent with CABG in October 2017 History of CO Left lower extremity DVT diagnosed in April 2018 Morbid obesity BMI 49.6 Currently everyday smoker Plan: Patient will be continued on telemetry monitoring. Serial EKG and troponins. CT angiogram of chest was ordered to rule out a dissection.. Continue the pain medications and breathing treatments with Xopenex. Cardiology was consulted for further evaluation. Continue to monitor closely. Continue with home medications including Eliquis. Smoking cessation was counseled. Prognosis is guarded with multiple medical problems and comorbid conditions. Time with Patient: Greater than 30
[2018-07-15] MEDS: NITROGLYCERIN OINT 1 INCH/GM PACKET TOPICAL SCH ×2 (23:12→23:13)
[2018-07-15] MEDS: APIXABAN 5 MG TAB PO SCH (23:12)
[2018-07-15] MEDS: ACETAMINOPHEN TAB 500 MG TAB PO PRN (23:48)
[2018-07-15 23:50] LABS: Cholesterol 187 mg/dL (<200); HDL Cholesterol 39 mg/dL (40-60); LDL Cholesterol,Calculated 109 mg/dL (0-99); Triglycerides 193 mg/dL (<150)
--- NOTE | 2018-07-15 23:53 | CT ---
EXAM: CT Angiography Chest With Intravenous Contrast CLINICAL HISTORY: ITS.REASON CT Reason: r/o dissection TECHNIQUE: Axial computed tomographic angiography images of the chest with intravenous contrast using pulmonary embolism protocol. CTDI is 55 mGy and DLP is 3583 mGy-cm. This CT exam was performed using one or more of the following dose reduction techniques: automated exposure control, adjustment of the mA and/or kV according to patient size, and/or use of iterative reconstruction technique. MIP reconstructed images were created and reviewed. COMPARISON: No relevant prior studies available. FINDINGS: Pulmonary arteries: No filling defects. Aorta: No acute findings. No thoracic aortic aneurysm. Lungs: No mass. No consolidation. Pleural space: No significant effusion. No pneumothorax. Heart: No cardiomegaly or pericardial effusion. Bones/joints: No acute fracture or dislocation. Soft tissues: Unremarkable. Lymph nodes: No enlarged lymph nodes. IMPRESSION: No acute intrathoracic findings. EXAM: CT Angiography Abdomen and Pelvis With Intravenous Contrast CLINICAL HISTORY: ITS.REASON CT Reason: r/o dissection TECHNIQUE: Axial computed tomographic angiography images of the abdomen and pelvis with intravenous contrast. CTDI is 55 mGy and DLP is 3583 mGy-cm. This CT exam was performed using one or more of the following dose reduction techniques: automated exposure control, adjustment of the mA and/or kV according to patient size, and/or use of iterative reconstruction technique. MIP reconstructed images were created and reviewed. COMPARISON: No relevant prior studies available. FINDINGS: VASCULATURE: Aorta: No acute findings. No abdominal aortic aneurysm. No dissection. Celiac trunk and mesenteric arteries: No acute findings. No occlusion or significant stenosis. Renal arteries: No acute findings. No occlusion or significant stenosis. Iliac arteries: No acute findings. No occlusion or significant stenosis. Lung bases: Unremarkable. No mass. No consolidation. ABDOMEN: Liver: Unremarkable. No mass. Gallbladder and bile ducts: Cholecystectomy. Pancreas: Unremarkable. No ductal dilation. No mass. Spleen: Unremarkable. No splenomegaly. Adrenals: Unremarkable. No mass. Kidneys and ureters: Unremarkable. No hydronephrosis. No solid mass. Stomach and bowel: Unremarkable. No obstruction. No mucosal thickening. PELVIS: Appendix: No findings to suggest acute appendicitis. Bladder: Unremarkable. No mass. Reproductive: Unremarkable. ABDOMEN and PELVIS: Intraperitoneal space: Unremarkable. No significant fluid collection. No free air. Bones/joints: No acute fracture. No dislocation. Soft tissues: Unremarkable. Lymph nodes: Unremarkable. No enlarged lymph nodes. IMPRESSION: No acute findings in the arterial system of the abdomen and pelvis.
[2018-07-16] MEDS: IPRATROPIUM 0.5 MG/2.5 ML NEBU INHALATION SCH ×4 (00:02→11:08)
[2018-07-16 02:42] LABS: Creatine Kinase 54 U/L (30-135)
[2018-07-16 02:55] LABS: Creatine Kinase MB 0.7 ng/mL (0.0-2.4); Troponin I <0.012 ng/mL (0.000-0.034)
[2018-07-16] MEDS: ACETAMINOPHEN TAB 500 MG TAB PO PRN (03:50)
[2018-07-16] MEDS: NITROGLYCERIN OINT 1 INCH/GM PACKET TOPICAL SCH (04:07)
[2018-07-16] MEDS ORDERED: ASPIRIN 325 MG TAB PO SCH (09:00)
[2018-07-16] MEDS: APIXABAN 5 MG TAB PO SCH (09:28)
--- NOTE | 2018-07-16 09:44 | CONS ---
CONSULTATION CHIEF COMPLAINT: Chest pain. Lucinda is a 38-year-old lady with history of coronary artery disease, status post CABG, history of DVT and recurrent pulmonary embolisms, who presented to hospital complaining of chest pain. Patient had known coronary artery dissection and went on to have bypass of the LAD. She has left popliteal vein thrombosis for which she is on oral Eliquis. She comes in complaining of chest pain that is sharp, precordial, radiated to her back, mild intensity going on for 2 days. Did not have any diaphoresis with shortness of breath. Pain did not radiate down her arms. EKG did not reveal ischemic changes. Cardiac enzymes have been negative. Patient also has tooth pain that she has had for more than a year. Patient's cardiac surgery was done at . We do not have any of these records at this time. She had CTA of the thoracic aorta that was negative. Pulmonary arteries did not reveal any filling defect. EKG shows sinus rhythm with nonspecific T-wave changes. Three sets of cardiac enzymes are negative. LDL cholesterol is 109. Patient also complains of cough and runny nose and her chest discomfort seemed to get worse with coughing. Patient's chest pain is atypical, probably musculoskeletal. PAST MEDICAL HISTORY: Significant for dissection of the coronary artery, status post CABG, history of recurrent DVT with pulmonary embolism. MEDICATIONS: Include Eliquis 5 b.i.d., Zantac 150 mg daily, sulfadiazine, and Tylenol. Patient is allergic to ALBUTEROL, AMOXICILLIN, ZITHROMAX, LATEX, and PENICILLIN. FAMILY HISTORY: Negative for premature coronary artery disease. SOCIAL HISTORY: Negative for current smoking, EtOH use or drug abuse. REVIEW OF SYSTEMS: HEENT is unremarkable. CARDIAC: As described above. RESPIRATORY: As described above. GI: Negative. GENITOURINARY: Negative. ALLERGY/IMMUNOLOGY: Negative. SKIN: Negative. MUSCULOSKELETAL: Significant for arthritis. PSYCHOSOCIAL: Negative. ENDOCRINE: Negative. DERMATOLOGICAL: Negative. CONSTITUTIONAL: Negative. ONCOLOGICAL: Negative. HEMATOLOGICAL: Negative. Rest of the system review is not relevant. PHYSICAL EXAM: Patient is comfortable at rest. Afebrile. Heart rate is 90 beats per minute. Blood pressure is 120/70, respiratory rate is 18. There is no jugular venous distention. Carotid upstroke is normal. There is no bruit. Chest exam reveals good air entry bilaterally. Heart exam reveals first and second heart sounds. No gallop. No murmur. No rub. Abdomen is soft, nontender. Exam of extremities did not reveal any edema. Peripheral pulses are felt. ASSESSMENT: 1. Precordial chest pain, sharp, atypical, probably noncardiac. 2. History of deep venous thrombosis with recurrent pulmonary embolism. 3. History of dissection of the left anterior descending artery, probably spontaneous during , status post bypass surgery. PLAN: From cardiac standpoint, patient is doing well. EKG does not reveal ischemic changes. Cardiac enzymes have been negative. Patient is on Eliquis, which is going to be continued. She seems to be coming down with upper respiratory tract infection. Patient has cough and has productive sputum. I am going to obtain a 2D echo to assess her LV function, review records from , her bypass surgery was done in October of this year. I do not see the need to investigate for coronary artery disease at this time, given the normal cardiac enzymes, atypical chest pain and normal EKG. MMODL / IJN: [id number] /
[2018-07-16] MEDS ORDERED: APIXABAN 5 MG TAB PO STA (10:55)
--- NOTE | 2018-07-16 11:07 | ECHOF ---
Referral Reason:cp MEASUREMENTS -------- HEIGHT: 160.0 cm WEIGHT: 127.0 kg BP: 119/71 RVIDd: 2.7 cm (< 3.3) IVSd: 1.1 cm (0.6 - 1.1) LVIDd: 3.8 cm (3.9 - 5.3) LVPWd: 1.3 cm (0.6 - 1.1) IVSs: 1.7 cm LVIDs: 2.5 cm LVPWs: 1.8 cm LA Diam: 3.6 cm (2.7 - 3.8) LAESV Index (A-L): 23.10 ml/m Ao Diam: 3.1 cm (2.0 - 3.7) AV Cusp: 2.0 cm (1.5 - 2.6) EPSS: 0.7 cm MV E Faisal: 1.16 m/s MV DecT: 210 ms MV A Faisal: 1.06 m/s MV E/A Ratio: 1.09 RAP: 5.00 mmHg RVSP: 29.63 mmHg MV EF SLOPE: 108.46 mm/s (70 - 150) MV EXCURSION: 1.79 cm (> 18.000) FINDINGS -------- Sinus rhythm. This was a technically difficult study with suboptimal views. The left ventricular size is normal. There is mild concentric left ventricular hypertrophy. Overa ll left ventricular systolic function is low-normal with, an EF between 50 - 55 %. Apical inferior LV wall motion is hypokinetic. Apical septum LV wall motion is hypokinetic. The right ventricle is normal in size. Normal LA size by volume 22+/-6 ml/m2. The right atrium is normal in size. 3 ml of Lumason was utilized for enhancement of images. The aortic valve was not well visualized. The mitral valve is normal. Mild tricuspid regurgitation present. Right ventricular systolic pressure is normal at < 35 mmHg. The pulmonic valve was not well visualized. The aortic root size is normal. Normal inferior vena cava with normal inspiratory collapse consistent with estimated right atrial pre ssure of 5 mmHg. There is no pericardial effusion. CONCLUSIONS -------- 1. Sinus rhythm. 2. This was a technically difficult study with suboptimal views. 3. The left ventricular size is normal. 4. There is mild concentric left ventricular hypertrophy. 5. Overall left ventricular systolic function is low-normal with, an EF between 50 - 55 %. 6. Apical inferior LV wall motion is hypokinetic. 7. Apical septum LV wall motion is hypokinetic. 8. The right ventricle is normal in size. 9. Normal LA size by volume 22+/-6 ml/m2. 10. The right atrium is normal in size. 11. 3 ml of Lumason was utilized for enhancement of images. 12. The aortic valve was not well visualized. 13. The mitral valve is normal. 14. Mild tricuspid regurgitation present. 15. Right ventricular systolic pressure is normal at < 35 mmHg. 16. The pulmonic valve was not well visualized. 17. The aortic root size is normal. 18. Normal inferior vena cava with normal inspiratory collapse consistent with estimated right atrial pressure of 5 mmHg. 19. There is no pericardial effusion. WET PAN OPERATOR: LORI Goldberg
[2018-07-16 12:43] VITALS: BP 125/78; PULSE 98; RESP 16; TEMP 97.5
--- NOTE | 2018-07-17 00:20 | P.DS ---
Providers Date of admission: 07/15/18 16:49 Expected date of discharge: 07/16/18 Attending physician: Mahad Arora Consults: 07/15/18 16:44 Consult Physician Urgent Consulting Provider: [facility] Consult Reason/Comments: Chest pain Do you want consulting provider notified?: Yes Primary care physician: Kecia Lopez [facility] Course: Discharge diagnosis Chest pain radiating to the back with a known history of coronary artery dissection. Ruled out ACS and CT chest was also negative for dissection. Cough and cold-like symptoms 1 day History of coronary artery dissection and LAD stent with CABG in October 2017 History of ND Left lower extremity DVT diagnosed in April 2018 Morbid obesity BMI 49.6 Currently everyday smoker Hospital course Patient is a 38-year-old female with a known history of coronary artery dissection and bypass of the LAD with open-heart surgery in October 2017, DVT of the left popliteal vein diagnosed in April 2018-currently on oral anticoagulation with eliquis came to ER with complaints of chest pain mainly mid retrosternal, swordlike patient and is radiating to the back.Patient states today the pain got considerably worse approximate one hour prior to arrival. Patient denies any difficulty breathing or shortness of breath. Patient denies any sweating episodes. Patient denies any nausea vomiting diarrhea. Patient denies any abdominal pain. Patient denies any lightheadedness dizziness or near syncopal episode. Patient states this pain feels same pain she has with her previous heart attacks. Patient has been having cold like symptoms with cough and very now since yesterday. Patient was initially diagnosed with LLE DVT in April 2018. Currently taking oral anticoagulation regularly. Patient says that she had a left lower extremity duplex scan done about a week ago at [facility] which showed chronic DVT. Patient is also complaining of increasing swelling of the left lower extremity compared to right and pain behind the knee as well. Patient takes Tylenol thousand milligrams every 6 hourly at home. Patient says that she had prior history of ND. Chest x-ray showed no acute cardiopulmonary process EKG showed normal sinus rhythm Troponin 3 negative. No other electrolyte abnormalities noted. Plan: Patient was continued on telemetry monitoring. Serial EKG and troponins negative. CT angiogram of chest was ordered to rule out a dissection was also negative... Continue the pain medications and breathing treatments with Xopenex. Cardiology was consulted for further evaluation. 2-D echocardiogram showed normal ejection fraction. No acute abnormalities noted.. Continued with home medications including Eliquis. Patient did improve symptomatically. Smoking cessation was counseled. Currently denied any complaints of chest pain or shortness of breath. Stable to be discharged home and follow-up as an outpatient. Discharge physical examination was done. Vital Signs - 24 hr 07/16/18 07/16/18 07/16/18 04:00 07:46 08:17 Temperature 97.5 F L 98.3 F Pulse Rate 61 96 Pulse Rate [ Bilateral Dorsalis Pedis] Pulse Rate [ 92 Pulse Oximetery ] Respiratory 18 16 Rate Blood Pressure 119/71 Blood Pressure 120/78 [Left Arm Supine] O2 Sat by Pulse 95 96 Oximetry 07/16/18 07/16/18 07/16/18 08:28 11:08 11:20 Temperature Pulse Rate 96 86 80 Pulse Rate [ Bilateral Dorsalis Pedis] Pulse Rate [ Pulse Oximetery ] Respiratory Rate Blood Pressure Blood Pressure [Left Arm Supine] O2 Sat by Pulse Oximetry 07/16/18 07/16/18 07/16/18 11:35 12:42 12:47 Temperature 98.0 F 97.5 F L Pulse Rate 88 Pulse Rate [ 91 Bilateral Dorsalis Pedis] Pulse Rate [ 98 Pulse Oximetery ] Respiratory 18 16 16 Rate Blood Pressure 129/83 Blood Pressure 125/78 [Left Arm Supine] O2 Sat by Pulse 96 Oximetry Patient Condition at Discharge: Stable Plan - Discharge Summary Discharge Rx Participant: No New Discharge Prescriptions: Continue Ranitidine HCl [Zantac] 150 mg PO HS SILVER sulfADIAZINE Cream [Silvadene 1% Cream] 1 applic TOPICAL DAILY PRN PRN Reason: Rash Apixaban [Eliquis] 5 mg PO BID Acetaminophen Tab [Tylenol] 1,000 mg PO Q6HR PRN PRN Reason: Pain Discharge Medication List Ranitidine HCl [Zantac] 150 mg PO HS 07/05/17 [History] Acetaminophen Tab [Tylenol] 1,000 mg PO Q6HR PRN 07/15/18 [History] Apixaban [Eliquis] 5 mg PO BID 07/15/18 [History] SILVER sulfADIAZINE Cream [Silvadene 1% Cream] 1 applic TOPICAL DAILY PRN [History] Follow up Appointment(s)/Referral(s): Kecia Lopez MD [Primary Care Provider] - 1-2 days Discharge Disposition: HOME SELF-CARE
== END 2018-07-16 13:49 | disposition home or self-care (01) ==
LOC: EC 13:57 → 1SOBS 16:49
PROVIDERS: ADMIT Internal Medicine; ATTEND Internal Medicine
DX: R07.89 Other chest pain (principal); I82.532 Chronic embolism and thrombosis of left popliteal vein; J00 Acute nasopharyngitis [common cold]; K08.89 Other specified disorders of teeth and supporting structures; M19.90 Unspecified osteoarthritis, unspecified site; E66.01 Morbid (severe) obesity due to excess calories; F17.200 Nicotine dependence, unspecified, uncomplicated; Z68.42 Body mass index [BMI] 45.0-49.9, adult; Z79.01 Long term (current) use of anticoagulants; Z79.899 Other long term (current) drug therapy; Z88.0 Allergy status to penicillin; Z88.1 Allergy status to other antibiotic agents; Z91.040 Latex allergy status; Z88.8 Allergy status to other drugs, medicaments and biological substances; Z91.048 Other nonmedicinal substance allergy status; Z86.14 Personal history of Methicillin resistant Staphylococcus aureus infection; Z86.718 Personal history of other venous thrombosis and embolism; Z90.49 Acquired absence of other specified parts of digestive tract; Z95.1 Presence of aortocoronary bypass graft; Z86.711 Personal history of pulmonary embolism; Z86.79 Personal history of other diseases of the circulatory system; I25.2 Old myocardial infarction; Z83.3 Family history of diabetes mellitus; Z82.49 Family history of ischemic heart disease and other diseases of the circulatory system; Z80.49 Family history of malignant neoplasm of other genital organs; Z82.3 Family history of stroke; Z84.1 Family history of disorders of kidney and ureter; Z81.8 Family history of other mental and behavioral disorders
CPT/HCPCS: 96361 ×2; 96374; 96375; 99285; 36415; 94640 ×2; 93005; 80061; 80053; 82550 ×2; 82553 ×2; 83735; 84484 ×2; 85025; 85610; 85730; 71046; 71275; 74174; G0378 ×2; C8929; J2405; J2270; Q9950; Q9967; 93306

== ENCOUNTER 2018-11-03 18:34 | Observation (INO) | payer BC, OTHER ==
[2018-11-03] MEDS ORDERED: HYDROmorphone 2 MG/ML 1 ML SYRINGE IVP STA (19:25)
[2018-11-03] MEDS ORDERED: SODIUM CHLORIDE 0.9% 500 ML 500 ML IV ONE (19:26)
[2018-11-03] MEDS ORDERED: ONDANSETRON 4 MG/2 ML VIAL IVP STA (19:26)
--- NOTE | 2018-11-03 19:29 | ED ---
Chest Pain HPI - General Chief Complaint: Chest Pain Stated Complaint: chest pain, sob Time Seen by Provider: 11/03/18 19:11 Source: patient Mode of arrival: wheelchair Limitations: no limitations - History of Present Illness Initial Comments: 38 year old female patient with past medical history significant for myocardial infarction with one-vessel CABG presents to the emergency department today for evaluation of substernal and left-sided chest pain. Patient states it is sharp stabbing pain that radiates through to her back. Patient states she has been short of breath, nausea, and sweaty with this. Patient states the pain started last evening and has persisted throughout the day since he states it is progressively worsening. She denies any dizziness or weakness. She does admit to smoking cigarettes. She sees Dr. Shetty for outpatient cardiology. Patient denies any recent rash, fever, chills, abdominal pain, diarrhea, constipation, back pain, numbness, tingling, hematuria, dysuria, urinary urgency, urinary frequency, headache, visual changes, or any other complaints. - Related Data Home Medications Medication Instructions Recorded Confirmed Ranitidine HCl [Zantac] 150 mg PO BID 07/05/17 11/03/18 Apixaban [Eliquis] 5 mg PO BID 07/15/18 11/03/18 Metoprolol Tartrate 25 mg PO QAM 11/03/18 11/03/18 Rosuvastatin Calcium [Crestor] 5 mg PO HS 11/03/18 11/03/18 Varenicline Tartrate [Chantix 0.5 mg PO DIRECTED 11/03/18 11/03/18 Starter Pack] Allergies Allergy/AdvReac Type Severity Reaction Status Date / Time adhesive Allergy Rash/Hives Verified 11/03/18 19:54 albuterol Allergy Anaphylaxis Verified 11/03/18 19:54 amoxicillin Allergy Anaphylaxis Verified 11/03/18 19:54 ampicillin Allergy Anaphylaxis Verified 11/03/18 19:54 azithromycin [From Zithromax] Allergy Anaphylaxis Verified 11/03/18 19:54 erythromycin base Allergy Anaphylaxis Verified 11/03/18 19:54 latex Allergy Rash/Hives Verified 11/03/18 19:54 penicillin V Allergy Anaphylaxis Verified 11/03/18 19:54 Review of Systems ROS Statement: Those systems with pertinent positive or pertinent negative responses have been documented in the HPI. ROS Other: All systems not noted in ROS Statement are negative. EKG Findings - EKG Comments: EKG Findings:: EKG obtained at 1850 shows normal sinus rhythm with a ventricular rate of 91, TX interval 158, QR advent 80, QT 356, QTc 437. No evidence of ST elevation or depression. Past Medical History Past Medical History: Coronary Artery Disease (CAD), Deep Vein Thrombosis (DVT) , Myocardial Infarction (VT), Pulmonary Embolus (PE) Last Myocardial Infarction Date:: 09/2017 History of Any Multi-Drug Resistant Organisms: MRSA Date of last positivie culture/infection: 2014 MDRO Source:: abscess abdomen Past Surgical History: Section, Cholecystectomy, Coronary Bypass/CABG, Heart Catheterization Additional Past Surgical History / Comment(s): right wrist surgery, carpal tunnel, MRSA S/P wound. left knee surgery Past Anesthesia/Blood Transfusion Reactions: No Reported Reaction Past Psychological History: No Psychological Hx Reported Smoking Status: Current every day smoker Past Alcohol Use History: None Reported Past Drug Use History: None Reported - Past Family History Mother Family Medical History: Cancer, CVA/TIA, Diabetes Mellitus, Myocardial Infarction (VT), Renal Disease Additional Family Medical History / Comment(s): uterine cancer, artificial valves Father Additional Family Medical History / Comment(s): PAD Brother(s) Family Medical History: Coronary Artery Disease (CAD), Diabetes Mellitus Additional Family Medical History / Comment(s): 2 HEART STENTS, issue with heart valve Sister(s) Additional Family Medical History / Comment(s): psych issues Daughter(s) Family Medical History: No Reported History Son(s) Family Medical History: No Reported History General Exam Limitations: no limitations General appearance: alert, in no apparent distress, other (Physical well- developed, well-nourished adult female patient in no acute distress. Vital signs upon presentation are temperature 97.6F, pulse 93, respirations 18, blood pressure 115/80, pulse ox 97% on room air.) Eye exam: Present: normal appearance, PERRL, EOMI. Absent: scleral icterus, conjunctival injection, periorbital swelling ENT exam: Present: normal exam, normal oropharynx, mucous membranes moist Respiratory exam: Present: normal lung sounds bilaterally. Absent: respiratory distress, wheezes, rales, rhonchi, stridor Cardiovascular Exam: Present: regular rate, normal rhythm, normal heart sounds. Absent: systolic murmur, diastolic murmur, rubs, gallop, clicks GI/Abdominal exam: Present: soft, normal bowel sounds. Absent: distended, tenderness, guarding, rebound, rigid Neurological exam: Present: alert, oriented X3, CN II-XII intact Psychiatric exam: Present: normal affect, normal mood Skin exam: Present: warm, dry, intact, normal color. Absent: rash Course Vital Signs 11/03/18 11/03/18 18:39 21:01 Temperature 97.6 F Pulse Rate 93 84 Respiratory 18 18 Rate Blood Pressure 115/80 105/57 O2 Sat by Pulse 97 95 Oximetry Chest Pain MDM - [facility] RADIOLOGY: Two-view x-ray of the chest is obtained. Report was reviewed in its entirety. Impression by Dr. Mars shows no active cardiopulmonary disease. Normal heart. No change. MDM: 38-year-old female patient with a past medical history significant for CABG and myocardial infarction with the last VT being 09/2017 presents to the emergency department today for evaluation of substernal left-sided chest pain that radiates through to her back. Patient did have associated nausea, shortness of breath, and sweats with this. Labs reviewed and are relatively unremarkable. Initial troponin negative. Chest x-ray showed no acute cardiopulmonary process. Given risk factors, past history is felt the patient benefit from admission for serial troponins and evaluation by cardiology tomorrow. Did discuss findings, results, plan with the patient, she is agreeable. Disposition Clinical Impression: Chest pain Disposition: ADMITTED IP TO THIS [facility] Condition: Serious Referrals: Kecia Lopez MD [Primary Care Provider] - 1-2 days Decision to Admit Reason: Admit from EC Decision Date: 11/03/18 Decision Time: 21:39
[2018-11-03 19:41] LABS: Basophils % (A) 1 %; Eosinophils # (A) 0.2 k/uL (0-0.7); Eosinophils % (A) 2 %; HCT 39.8 % (34.0-46.0); HGB 13.3 gm/dL (11.4-16.0); Lymphocytes # (A) 2.9 k/uL (1.0-4.8); Lymphocytes % (A) 33 %; MCH 29.2 pg (25.0-35.0); MCHC 33.4 g/dL (31.0-37.0); MCV 87.5 fL (80.0-100.0); Mean Platelet Volume 6.8; Monocytes # (A) 0.4 k/uL (0-1.0); Monocytes % (A) 4 %; Neutrophils # (A) 5.2 k/uL (1.3-7.7); Neutrophils % (A) 59 %; Platelet Count 278 k/uL (150-450); RBC 4.54 m/uL (3.80-5.40); RDW 14.2 % (11.5-15.5); WBC 8.8 k/uL (3.8-10.6)
[2018-11-03 19:58] LABS: Creatine Kinase 71 U/L (30-135)
[2018-11-03 20:00] LABS: ALT 69 U/L (9-52); AST 32 U/L (14-36); Albumin 3.9 g/dL (3.5-5.0); Alkaline Phosphatase 79 U/L (38-126); Anion Gap 7 mmol/L; Blood Urea Nitrogen 17 mg/dL (7-17); Calcium 9.5 mg/dL (8.4-10.2); Carbon Dioxide 26 mmol/L (22-30); Chloride 106 mmol/L (98-107); Glucose 93 mg/dL (74-99); Magnesium 1.8 mg/dL (1.6-2.3); Potassium 4.2 mmol/L (3.5-5.1); Sodium 139 mmol/L (137-145); Total Bilirubin 0.2 mg/dL (0.2-1.3); Total Protein 6.6 g/dL (6.3-8.2)
[2018-11-03 20:11] LABS: Creatine Kinase MB 0.5 ng/mL (0.0-2.4); Troponin I <0.012 ng/mL (0.000-0.034)
[2018-11-03 20:14] LABS: INR 0.9 (<1.2); Partial Thromboplastin Time 23.5 sec (22.0-30.0); Prothrombin Time 9.9 sec (9.0-12.0)
--- NOTE | 2018-11-03 20:59 | XR ---
EXAMINATION TYPE: XR chest 2V DATE OF EXAM: 11/03/2018 COMPARISON: 07/15/2018 HISTORY: Chest pain TECHNIQUE: Frontal and lateral views of the chest are obtained. FINDINGS: Heart is normal. Lungs are clear of consolidation. There are sternal wires. Costophrenic a ngles are clear. Bony thorax is intact. IMPRESSION: No active cardiopulmonary disease. Normal heart. No change.
[2018-11-03] MEDS ORDERED: NITROGLYCERIN SL TABS 0.4 MG TAB SUBLINGUAL PRN (21:33)
[2018-11-03] MEDS ORDERED: diphenhydrAMINE 50 MG/ML 1 ML VIAL IVP STA (22:11)
[2018-11-03 23:28] VITALS: BMI 50.9
--- NOTE | 2018-11-03 23:30 | US ---
INDICATION: Left leg swelling. Chest pain left leg edema. TECHNIQUE: Real-time imaging of the left common femoral, superficial femoral and popliteal veins is performed utilizing intermittent compression. The study is supplemented with color flow imaging and duplex Doppler during spontaneous flow and calf augmentation. COMPARISON: None FINDINGS: Normal compressibility is demonstrated from the common femoral vein to the popliteal vein. There is normal response to augmentation. Normal spontaneous phasic flow is noted. IMPRESSION: No evidence of deep venous thrombosis in the left lower extremity.
[2018-11-03] MEDS: ONDANSETRON 4 MG/2 ML VIAL IVP PRN (23:37)
[2018-11-03] MEDS: HYDROmorphone 1 MG/ML 1 ML SYRINGE IVP PRN (23:42)
[2018-11-04] MEDS ORDERED: diphenhydrAMINE 50 MG/ML 1 ML VIAL IM PRN
[2018-11-04] MEDS: FAMOTIDINE 20 MG TAB PO SCH ×3 (00:11→20:02)
[2018-11-04] MEDS: ATORVASTATIN 10 MG TAB PO SCH ×2 (00:12→20:02)
[2018-11-04] MEDS: diphenhydrAMINE 50 MG/ML 1 ML VIAL IVP PRN ×2 (00:55→10:52)
[2018-11-04 01:23] LABS: Creatine Kinase 63 U/L (30-135)
[2018-11-04 01:37] LABS: Creatine Kinase MB 0.5 ng/mL (0.0-2.4); Troponin I <0.012 ng/mL (0.000-0.034)
[2018-11-04 07:01] LABS: Cholesterol 132 mg/dL (<200); HDL Cholesterol 33 mg/dL (40-60); LDL Cholesterol,Calculated 63 mg/dL (0-99); Triglycerides 179 mg/dL (<150)
[2018-11-04 07:09] LABS: Creatine Kinase 61 U/L (30-135)
[2018-11-04 07:22] LABS: Creatine Kinase MB 0.5 ng/mL (0.0-2.4); Troponin I <0.012 ng/mL (0.000-0.034)
[2018-11-04] MEDS ORDERED: FAMOTIDINE 20 MG TAB PO SCH (09:00)
[2018-11-04] MEDS: APIXABAN 5 MG TAB PO SCH ×2 (09:15→19:42)
[2018-11-04] MEDS: ASPIRIN 325 MG TAB PO SCH (09:15)
[2018-11-04] MEDS: METOPROLOL TARTRATE 25 MG TAB PO SCH (09:15)
[2018-11-04] MEDS: HYDROmorphone 1 MG/ML 1 ML SYRINGE IVP PRN ×2 (10:24→20:02)
[2018-11-04] MEDS: ONDANSETRON 4 MG/2 ML VIAL IVP PRN ×2 (10:28→20:03)
--- NOTE | 2018-11-04 10:40 | P.CRDCN ---
History of Present Illness History of present illness: This is a pleasant 38 year old female past medical history significant for coronary artery disease status post bypass grafting. She initially underwent a cardiac catheterization at [facility] which revealed a lesion in the mid LAD with evidence of intrinsic dissection. Subsequently thereafter she went back to the hospital with a significant rise in her troponin and had a total occlusion of the LAD requiring bypass grafting with a BLUNT to the LAD. This took place in October 2017. Post procedure she had 2 episodes of DVT and PE with right ventricular enlargement and is currently on long-term anticoagulation due to that. Most recent echocardiogram revealed normal LV size and function with no evidence of right ventricular enlargement. She follows in the office with Dr. Shetty. We have been asked to see her in consultation for symptoms of chest discomfort. She describes a sharp pain in the midsternal region with radiation to the left precordial region. No radiation to the arm, back, neck or jaw. This first started on Saturday night while at home resting. She has no specific aggravating or alleviating factors. She had mild nausea and would have episodes of cool clammy feeling throughout her body. Her symptoms of chest discomfort seemed to worsen last night and became much worse with deep inspiration or movement of her torso. She denies associated dizziness, palpitations, vomiting, fever/ chills or cough. She has been receiving Dilaudid IV since admission to the hospital and her chest pain has resolved. EKG reveals sinus mechanism with T-wave inversion in anterior lead with poor R- wave progression. No change from previous EKG. Chest xray is negative for an acute cardiopulmonary process. Left lower extremity Doppler negative for DVT. Laboratory data reviewed, WBC 8.8, hemoglobin 13.3, platelets 278, sodium 139, potassium 4.2, creatinine 0.73, magnesium 1.8, cardiac enzymes negative 3, LDL 63 and HDL 33. Current cardiac medications include Eliquis 5 mg twice a day, Lopressor 25 mg daily and rosuvastatin 5 mg daily. Most recent stress test performed in the office July 2018 was an exercise stress test that was negative for stress-induced cardiac ischemia with poor exercise tolerance. At the time of my exam: CONSTITUTIONAL: Denies fever. Denies chills. EYES: Denies blurred vision. Denies vision changes. Denies eye pain. EARS, NOSE, MOUTH & THROAT: Denies headache. Denies sore throat. Denies ear pain. CARDIOVASCULAR: Complains of pleuritic chest pain. Denies shortness of breath. Denies orthopnea. Denies PND. Denies palpitations. RESPIRATORY: Denies cough. GASTROINTESTINAL: Denies abdominal pain. Denies diarrhea. Denies constipation. Denies nausea. Denies vomiting. MUSCULOSKELETAL: Denies myalgias. INTEGUMENTARY: Denies pruitis. Denies rash. NEUROLOGIC: Denies numbness. Denies tingling. Denies weakness. PSYCHIATRIC: Denies anxiety. Denies depression. ENDOCRINE: Denies fatigue. Denies weight change. Denies polydipsia. Denies polyurina. GENITOURINARY: Denies burning, hematuria or urgency with micturation. HEMATOLOGIC: Denies history of anemia. Denies bleeding. Blood pressure 106/69 heart rate 74 afebrile maintaining oxygen saturation on room air GENERAL: This is a 38-year-old female in no apparent distress at the time of my examination. Morbidly obese. HEENT: Head is atraumatic, normocephalic. Pupils are equal, round. Sclerae anicteric. Conjunctivae are clear. Mucous membranes of the mouth are moist. Neck is supple. There is no jugular venous distention. No carotid bruit is heard. LUNGS: Clear to auscultation no wheezes, rales or rhonchi. No chest wall tenderness is noted on palpation or with deep breathing. HEART: Regular rate and rhythm without murmurs, rubs or gallops. S1 and S2 heard. ABDOMEN: Soft, nontender. Bowel sounds are heard. No organomegaly noted. EXTREMITIES: No evidence of peripheral edema and no calf tenderness noted. VASCULAR: Radial and dorsalis pedis pulses palpated, no evidence of clubbing. NEUROLOGIC: Patient is awake, alert and oriented x3. ASSESSMENT Chest pain, atypical for angina. Acute event has been ruled out. Mostly musculoskeletal in nature with pleurtic component. Dyslipidemia Hypertension History of coronary artery disease status post single-vessel bypass grafting Morbid obesity, BMI 52.4 PLAN An acute coronary event has been ruled out. Recent stress test in the office shows no evidence of stress-induced ischemia. Obtain 2-D echocardiogram and Doppler study to assess cardiac structure and function. Add a small dose of Imdur 30 mg daily to her daily regimen. Increase activity and ambulation in the halls. Lifestyle modifications recommended for weight loss. Stable from a cardiac perspective, follow-up in the office with Dr. Shetty in 2 weeks. Thank you kindly for this consultation. Nurse Practitioner note has been reviewed, I agree with a documented findings and plan of care. Patient was seen and examined. Past Medical History Past Medical History: Coronary Artery Disease (CAD), Deep Vein Thrombosis (DVT) , Myocardial Infarction ([place]), Pulmonary Embolus ([place]) Last Myocardial Infarction Date:: 09/2017 History of Any Multi-Drug Resistant Organisms: MRSA Date of last positivie culture/infection: 2014 MDRO Source:: abscess abdomen Past Surgical History: Section, Cholecystectomy, Coronary Bypass/CABG, Heart Catheterization Additional Past Surgical History / Comment(s): right wrist surgery, carpal tunnel, MRSA S/P wound. left knee surgery Past Anesthesia/Blood Transfusion Reactions: No Reported Reaction Past Psychological History: No Psychological Hx Reported Smoking Status: Current every day smoker Past Alcohol Use History: None Reported Past Drug Use History: None Reported - Past Family History Mother Family Medical History: Cancer, CVA/TIA, Diabetes Mellitus, Myocardial Infarction ([place]), Renal Disease Additional Family Medical History / Comment(s): uterine cancer, artificial valves Father Additional Family Medical History / Comment(s): PAD Brother(s) Family Medical History: Coronary Artery Disease (CAD), Diabetes Mellitus Additional Family Medical History / Comment(s): 2 HEART STENTS, issue with heart valve Sister(s) Additional Family Medical History / Comment(s): psych issues Daughter(s) Family Medical History: No Reported History Son(s) Family Medical History: No Reported History Medications and Allergies Home Medications Medication Instructions Recorded Confirmed Type Ranitidine HCl [Zantac] 150 mg PO BID 07/05/17 11/03/18 History Apixaban [Eliquis] 5 mg PO BID 07/15/18 11/03/18 History Metoprolol Tartrate 25 mg PO QAM 11/03/18 11/03/18 History Rosuvastatin Calcium [Crestor] 5 mg PO HS 11/03/18 11/03/18 History Varenicline Tartrate [Chantix 0.5 mg PO DIRECTED 11/03/18 11/03/18 History Starter Pack] Allergies Allergy/AdvReac Type Severity Reaction Status Date / Time adhesive Allergy Rash/Hives Verified 11/03/18 19:54 albuterol Allergy Anaphylaxis Verified 11/03/18 19:54 amoxicillin Allergy Anaphylaxis Verified 11/03/18 19:54 ampicillin Allergy Anaphylaxis Verified 11/03/18 19:54 azithromycin [From Zithromax] Allergy Anaphylaxis Verified 11/03/18 19:54 erythromycin base Allergy Anaphylaxis Verified 11/03/18 19:54 latex Allergy Rash/Hives Verified 11/03/18 19:54 penicillin V Allergy Anaphylaxis Verified 11/03/18 19:54 Physical Exam Vitals: Vital Signs Temp Pulse Pulse Pulse Resp BP BP 11/04/18 07:00 98.2 F 74 18 106/69 11/04/18 04:00 83 18 11/04/18 03:53 97.9 F 83 18 119/72 11/04/18 00:00 75 16 11/03/18 23:37 97.5 F L 75 16 135/78 11/03/18 22:54 98.2 F 72 16 122/78 11/03/18 22:33 98.0 F 76 18 129/79 11/03/18 21:01 84 18 105/57 11/03/18 19:00 71 11/03/18 18:39 97.6 F 93 18 115/80 Pulse Ox 11/04/18 07:00 95 11/04/18 04:00 11/04/18 03:53 93 L 11/04/18 00:00 11/03/18 23:37 99 11/03/18 22:54 98 11/03/18 22:33 98 11/03/18 21:01 95 11/03/18 19:00 11/03/18 18:39 97 Intake and Output 11/03/18 11/04/18 11/04/18 22:59 06:59 14:59 Other: Weight 134.263 kg Results 11/03/18 18:54 11/03/18 18:54 Cardiac Enzymes 11/03/18 11/03/18 11/04/18 Range/Units 18:54 18:54 00:30 AST 32 (14-36) U/L CK-MB (CK-2) 0.5 0.5 (0.0-2.4) ng/mL Troponin I <0.012 <0.012 (0.000-0.034) ng/mL 11/04/18 Range/Units 06:29 AST (14-36) U/L CK-MB (CK-2) 0.5 (0.0-2.4) ng/mL Troponin I <0.012 (0.000-0.034) ng/mL Coagulation 11/03/18 Range/Units 18:54 PT 9.9 (9.0-12.0) sec APTT 23.5 (22.0-30.0) sec Lipids 11/04/18 Range/Units 06:29 Triglycerides 179 H (<150) mg/dL Cholesterol 132 (<200) mg/dL HDL Cholesterol 33 L (40-60) mg/dL CBC 11/03/18 Range/Units 18:54 WBC 8.8 (3.8-10.6) k/uL RBC 4.54 (3.80-5.40) m/uL Hgb 13.3 (11.4-16.0) gm/dL Hct 39.8 (34.0-46.0) % Plt Count 278 (150-450) k/uL Comprehensive Metabolic Panel 11/03/18 Range/Units 18:54 Sodium 139 (137-145) mmol/L Potassium 4.2 (3.5-5.1) mmol/L Chloride 106 (98-107) mmol/L Carbon Dioxide 26 (22-30) mmol/L BUN 17 (7-17) mg/dL Creatinine 0.73 (0.52-1.04) mg/dL Glucose 93 (74-99) mg/dL Calcium 9.5 (8.4-10.2) mg/dL AST 32 (14-36) U/L ALT 69 H (9-52) U/L Alkaline Phosphatase 79 (38-126) U/L Total Protein 6.6 (6.3-8.2) g/dL Albumin 3.9 (3.5-5.0) g/dL Current Medications Generic Name Dose Route Start Last Admin Trade Name Freq PRN Reason Stop Dose Admin Apixaban 5 mg 11/04/18 09:00 Eliquis PO BID [facility] Aspirin 325 mg 11/04/18 09:00 Aspirin PO DAILY [facility] Atorvastatin Calcium 10 mg 11/03/18 23:35 11/04/18 00:12 Lipitor PO 10 mg HS [facility] Administration Diphenhydramine HCl 25 mg 11/04/18 00:13 11/04/18 00:55 Benadryl IVP 25 mg Q6HR PRN Administration Allergy Symptoms Famotidine 20 mg 11/03/18 23:45 11/04/18 00:11 Pepcid PO 20 mg BID [facility] Administration Hydromorphone HCl 1 mg 11/03/18 21:35 11/03/18 23:42 Dilaudid IVP 1 mg Q4HR PRN Administration Pain Metoprolol Tartrate 25 mg 11/04/18 09:00 Lopressor PO QAM [facility] Nitroglycerin 0.4 mg 11/03/18 21:33 Nitrostat SUBLINGUAL Q5M PRN Chest Pain Ondansetron HCl 4 mg 11/03/18 21:35 11/03/18 23:37 Zofran IVP 4 mg Q6HR PRN Administration Nausea And Vomiting Intake and Output 11/03/18 11/04/18 11/04/18 22:59 06:59 14:59 Other: Weight 134.263 kg 11/03/18 18:54 11/03/18 18:54
--- NOTE | 2018-11-04 11:47 | ECHOF ---
Referral Reason: MEASUREMENTS -------- HEIGHT: 160.0 cm WEIGHT: 134.3 kg BP: 106/69 RVIDd: 2.9 cm (< 3.3) IVSd: 1.4 cm (0.6 - 1.1) LVIDd: 4.3 cm (3.9 - 5.3) LVPWd: 1.4 cm (0.6 - 1.1) IVSs: 1.7 cm LVIDs: 3.5 cm LVPWs: 2.0 cm LA Diam: 3.6 cm (2.7 - 3.8) LAESV Index (A-L): 26.43 ml/m Ao Diam: 3.0 cm (2.0 - 3.7) MV EXCURSION: 19.544 mm (> 18.000) MV EF SLOPE: 137 mm/s (70 - 150) EPSS: 0.8 cm MV E Faisal: 0.97 m/s MV DecT: 178 ms MV A Faisal: 0.94 m/s MV E/A Ratio: 1.04 RAP: 5.00 mmHg RVSP: 41.43 mmHg FINDINGS -------- Sinus rhythm. This was a technically difficult study with suboptimal views. The left ventricular size is normal. There is moderate concentric left ventricular hypertrophy. O verall left ventricular systolic function is low-normal with, an EF between 50 - 55 %. The right ventricle is normal in size. Normal LA size by volume 22+/-6 ml/m2. The right atrium is normal in size. 3 ml of Lumason was utilized for enhancement of images. The aortic valve is trileaflet and appears structurally normal. The mitral valve is normal. Mild tricuspid regurgitation present. There is mild pulmonary hypertension. The right ventricular systolic pressure, as measured by Doppler, is 41.43mmHg. The pulmonic valve was not well visualized. The aortic root size is normal. Normal inferior vena cava with normal inspiratory collapse consistent with estimated right atrial pre ssure of 5 mmHg. The inferior vena cava is mildly dilated. There is no pericardial effusion. CONCLUSIONS -------- 1. Sinus rhythm. 2. This was a technically difficult study with suboptimal views. 3. The left ventricular size is normal. 4. There is moderate concentric left ventricular hypertrophy. 5. Overall left ventricular systolic function is low-normal with, an EF between 50 - 55 %. 6. The right ventricle is normal in size. 7. Normal LA size by volume 22+/-6 ml/m2. 8. The right atrium is normal in size. 9. 3 ml of Lumason was utilized for enhancement of images. 10. The aortic valve is trileaflet and appears structurally normal. 11. The mitral valve is normal. 12. Mild tricuspid regurgitation present. 13. There is mild pulmonary hypertension. 14. The right ventricular systolic pressure, as measured by Doppler, is 41.43mmHg. 15. The pulmonic valve was not well visualized. 16. The aortic root size is normal. 17. Normal inferior vena cava with normal inspiratory collapse consistent with estimated right atrial pressure of 5 mmHg. 18. The inferior vena cava is mildly dilated. 19. There is no pericardial effusion. SENIOR VALIDATION ENGINEER: Janice Washington RDCS
[2018-11-04] MEDS ORDERED: diphenhydrAMINE 25 MG CAP PO PRN (12:00)
--- NOTE | 2018-11-04 13:23 | CT ---
EXAMINATION TYPE: CT chest wo con DATE OF EXAM: 11/04/2018 COMPARISON: 07/15/2018 HISTORY: 38-year-old female chest pain at site of incision Scar widening for open heart TECHNIQUE: Contiguous axial scanning of the chest without IV contrast. Coronal and sagittal reconstru ctions performed. CT DLP: 888.1 mGycm Automated exposure control for dose reduction was used. FINDINGS: Median sternotomy wires are present. There is no abnormal separation of the sternotomy, surrounding i nflammation, or abnormal fluid collection at the sternotomy site. However, there is a defect of the subxiphoid midline muscular wall with herniating epigastric fat. Th e defect measures 1.6 cm wide and the hernia sac measures 1.7 cm wide by 1.8 cm thick by 3.0 cm crani ocaudal. Visualized upper abdomen shows cholecystectomy clips and small anterior splenule. Heart borderline enlarged without pericardial effusion. Aorta normal caliber with a conventional arch vessel branching anatomy. No thoracic lymphadenopathy by CT size criteria. Mild hazy dependent atelectasis. Some strandy atelectasis inferior lingula. No consolidation or pleur al effusion. Bones: No osseous destructive process. IMPRESSION: 1. FAT-CONTAINING SUBXIPHOID VENTRAL MIDLINE HERNIA. THE CHEST/ABDOMINAL WALL DEFECT MEASURES 1.6 CM WIDE AND THE HERNIA SAC MEASURES 1.7 X 1.8 X 3.0 CM. 2. OTHERWISE, THE STERNOTOMY APPEARS HEALED AND INTACT.
[2018-11-04] MEDS: ISOSORBIDE MONONITRATE ER 30 MG TAB.ER.24H PO SCH (17:30)
--- NOTE | 2018-11-04 17:50 | P.HPIM ---
History of Present Illness This is a pleasant 38 years old female with past medical history of coronary artery disease, DVT, myocardial infarction, pulmonary embolism on Eliquis. History of CABG last year. He presents because of chest pain, in the epigastrium, Lipitor radiating below left breast about 1-2 days in duration, about 8/10 in severity, and down to 3/10 in severity, associated with some nausea and little dyspnea, stabbing in character. On exam she has epigastric tenderness Vitas looks stable, CBC, BMP and INR were unremarkable and within normal limits. ALT is slightly elevated , rest of liver function within normal limits. Chest x-ray is negative for acute process. Cardiology evaluated the patient, acute coronary event has been ruled out. And the recommended amount Imdur to her regimen and they cleared patient for discharge from their perspective. She had CT of the colon showing subxiphoid midline and muscular wall defect with herniating epigastric fat. About 1.6 cm in width. Cardiac service also discussed the case with vascular surgery, who also recommended no need for vascular surgery intervention. Review of Systems CONSTITUTIONAL: No fever, no malaise, no fatigue. HEENT: No recent visual problems or hearing problems. Denied any sore throat. CARDIOVASCULAR: No orthopnea, PND, no palpitations, no syncope. PULMONARY: No shortness of breath, no cough, no hemoptysis. GASTROINTESTINAL: No diarrhea, no nausea, no vomiting, no abdominal pain. Normoactive bowel sounds. NEUROLOGICAL: No headaches, no weakness, no numbness. HEMATOLOGICAL: Denies any bleeding or petechiae. GENITOURINARY: Denies any burning micturition, frequency, or urgency. MUSCULOSKELETAL/RHEUMATOLOGICAL: Denies any joint pain, swelling, or any muscle pain. ENDOCRINE: Denies any polyuria or polydipsia. Past Medical History Past Medical History: Coronary Artery Disease (CAD), Deep Vein Thrombosis (DVT) , Myocardial Infarction ([place]), Pulmonary Embolus ([place]) Last Myocardial Infarction Date:: 09/2017 History of Any Multi-Drug Resistant Organisms: MRSA Date of last positivie culture/infection: 2014 MDRO Source:: abscess abdomen Past Surgical History: Section, Cholecystectomy, Coronary Bypass/CABG, Heart Catheterization Additional Past Surgical History / Comment(s): right wrist surgery, carpal tunnel, MRSA S/P wound. left knee surgery Past Anesthesia/Blood Transfusion Reactions: No Reported Reaction Past Psychological History: No Psychological Hx Reported Smoking Status: Current every day smoker Past Alcohol Use History: None Reported Past Drug Use History: None Reported - Past Family History Mother Family Medical History: Cancer, CVA/TIA, Diabetes Mellitus, Myocardial Infarction ([place]), Renal Disease Additional Family Medical History / Comment(s): uterine cancer, artificial valves Father Additional Family Medical History / Comment(s): PAD Brother(s) Family Medical History: Coronary Artery Disease (CAD), Diabetes Mellitus Additional Family Medical History / Comment(s): 2 HEART STENTS, issue with heart valve Sister(s) Additional Family Medical History / Comment(s): psych issues Daughter(s) Family Medical History: No Reported History Son(s) Family Medical History: No Reported History Medications and Allergies Home Medications Medication Instructions Recorded Confirmed Type Ranitidine HCl [Zantac] 150 mg PO BID 07/05/17 11/03/18 History Apixaban [Eliquis] 5 mg PO BID 07/15/18 11/03/18 History Metoprolol Tartrate 25 mg PO QAM 11/03/18 11/03/18 History Rosuvastatin Calcium [Crestor] 5 mg PO HS 11/03/18 11/03/18 History Varenicline Tartrate [Chantix 0.5 mg PO DIRECTED 11/03/18 11/03/18 History Starter Pack] Allergies Allergy/AdvReac Type Severity Reaction Status Date / Time adhesive Allergy Rash/Hives Verified 11/03/18 19:54 albuterol Allergy Anaphylaxis Verified 11/03/18 19:54 amoxicillin Allergy Anaphylaxis Verified 11/03/18 19:54 ampicillin Allergy Anaphylaxis Verified 11/03/18 19:54 azithromycin [From Zithromax] Allergy Anaphylaxis Verified 11/03/18 19:54 erythromycin base Allergy Anaphylaxis Verified 11/03/18 19:54 latex Allergy Rash/Hives Verified 11/03/18 19:54 penicillin V Allergy Anaphylaxis Verified 11/03/18 19:54 Physical Exam Vitals: Vital Signs Temp Pulse Pulse Pulse Resp BP BP 11/04/18 15:40 98.3 F 63 18 102/66 11/04/18 12:00 98.0 F 67 18 106/67 11/04/18 08:28 11/04/18 08:23 18 11/04/18 08:18 11/04/18 07:00 98.2 F 74 18 106/69 11/04/18 04:00 83 18 11/04/18 03:53 97.9 F 83 18 119/72 11/04/18 00:00 75 16 11/03/18 23:37 97.5 F L 75 16 135/78 11/03/18 22:54 98.2 F 72 16 122/78 11/03/18 22:33 98.0 F 76 18 129/79 11/03/18 21:01 84 18 105/57 11/03/18 19:00 71 11/03/18 18:39 97.6 F 93 18 115/80 Pulse Ox 11/04/18 15:40 95 11/04/18 12:00 93 L 11/04/18 08:28 92 L 11/04/18 08:23 11/04/18 08:18 92 L 11/04/18 07:00 95 11/04/18 04:00 11/04/18 03:53 93 L 11/04/18 00:00 11/03/18 23:37 99 11/03/18 22:54 98 11/03/18 22:33 98 11/03/18 21:01 95 11/03/18 19:00 11/03/18 18:39 97 Intake and Output 11/04/18 11/04/18 11/04/18 06:59 14:59 22:59 Intake Total 240 600 Balance 240 600 Intake: Oral 240 Other 600 Other: # Voids 1 GENERAL: The patient is alert and oriented x3, not in any acute distress. Well developed, well nourished. HEENT: Pupils are round and equally reacting to light. EOMI. No scleral icterus. No conjunctival pallor. Normocephalic, atraumatic. No pharyngeal erythema. No thyromegaly. CARDIOVASCULAR: S1 and S2 present. No murmurs, rubs, or gallops. PULMONARY: Chest is clear to auscultation, no wheezing or crackles. -ABDOMEN: Soft, epigastric tenderness, no rebound tenderness or guarding, nondistended, normoactive bowel sounds. No palpable organomegaly. MUSCULOSKELETAL: No joint swelling or deformity. EXTREMITIES: No cyanosis, clubbing, or pedal edema. NEUROLOGICAL: Gross neurological examination did not reveal any focal deficits. SKIN: No rashes. Results CBC & Chem 7: 11/03/18 18:54 11/03/18 18:54 Labs: Abnormal Lab Results - Last 24 Hours (Table) 11/03/18 11/04/18 Range/Units 18:54 06:29 ALT 69 H (9-52) U/L Triglycerides 179 H (<150) mg/dL HDL Cholesterol 33 L (40-60) mg/dL Thrombosis Risk Factor Assmnt - Choose All That Apply Any of the Below Risk Factors Present?: Yes Each Factor Represents 1 point: Obesity (BMI >25) Other Risk Factors: Yes Each Risk Factor Represents 3 Points: History of DVT/PE Other congenital or acquired thrombophilia - If yes, enter type in comment: No Thrombosis Risk Factor Assessment Total Risk Factor Score: 4 Thrombosis Risk Factor Assessment Level: Moderate Risk Assessment and Plan Assessment: subxiphoid midline and muscular wall defect with herniating epigastric fat History of coronary artery disease History of DVT and PE on Eliquis Obesity Plan: This is a pleasant 58 years old female who presents because of chest pain, cardiac workup was negative and they cleared her for discharge. However on the CAT scan showed they have subxiphoid muscular defect, with consults Gen. surgery to see the patient and further evaluation.Labs and medication were reviewed.. Continue same treatment. Continue with symptomatic treatment. Resume home medication. Monitor lytes and vitals. DVT and GI prophylaxis. Further recommendations of the clinical course of the patient DVT prophylaxis: Eliquis GI Prophylaxis: Pepcid Prognosis is guarded
[2018-11-04] MEDS ORDERED: ATORVASTATIN 10 MG TAB PO SCH (21:00)
[2018-11-05 03:41] VITALS: RESP 18; TEMP 98.3
[2018-11-05 07:33] VITALS: BP 109/67; PULSE 75
[2018-11-05] MEDS ORDERED: ACETAMINOPHEN TAB 325 MG TAB PO PRN (07:56)
[2018-11-05] MEDS: METOPROLOL TARTRATE 25 MG TAB PO SCH (08:03)
[2018-11-05] MEDS: FAMOTIDINE 20 MG TAB PO SCH (08:03)
[2018-11-05] MEDS: ISOSORBIDE MONONITRATE ER 30 MG TAB.ER.24H PO SCH (08:03)
--- NOTE | 2018-11-05 08:08 | P.PN ---
Subjective Progress Note Date: 11/05/18 Principal diagnosis: This is a pleasant 38-year-old female patient who sees Dr. Shetty in the office on regular basis with a past medical history significant for coronary artery disease and status post BLUNT to LAD in the setting of coronary dissection as well as hypertension and dyslipidemia was admitted to the hospital with a chest discomfort. She was ruled out for acute coronary event. Enzymes came in to be unremarkable. The EKG did not show any ischemic changes. The patient did have large sternal scar. We were concerned about dihesence in the sternal and because of that a computed tomography scan was performed and it did not show that but it did show ventral hernia. General surgical consult was placed and the patient is in process to be seen by a surgeon later on today. Objective - Vital Signs Vital signs: Vital Signs Temp 98.3 F 11/05/18 07:05 Pulse 75 11/05/18 07:05 Resp 18 11/05/18 07:05 BP 109/67 11/05/18 07:05 Pulse Ox 95 11/05/18 07:41 Intake & Output 11/04/18 11/05/18 11/05/18 18:59 06:59 18:59 Intake Total 1080 Balance 1080 Intake: Oral 480 Other 600 Other: # Voids 1 2 - Constitutional General appearance: Present: no acute distress - Respiratory Respiratory: bilateral: CTA - Cardiovascular Rhythm: regular Heart sounds: normal: S1, S2 - Labs CBC & Chem 7: 11/03/18 18:54 11/03/18 18:54 Assessment and Plan Assessment: Assessment #1 atypical chest pain #2 CAD as described above Plan #1 the patient is in process to be seen by a surgeon for evaluation of ventral hernia #2 further recommendation to follow that #3 from the cardiovascular standpoint overview the patient can be discharged home
--- NOTE | 2018-11-05 09:19 | P.GSCN ---
History of Present Illness Consult date: 11/05/18 Reason for Consult: abnormal CT scan Requesting physician: Segundo E Albert History of present illness: CHIEF COMPLAINT: abnormal CT scan HISTORY OF PRESENT ILLNESS: 38-year-old female who originally presented to the emergency room due to chest pain. General surgery was consulted for evaluation due to abnormal computed tomography scan. Patient examined at the bedside. Patient denies any pain or discomfort. Denies nausea or vomiting. Denies constipation or diarrhea. Requesting something to eat. PAST MEDICAL HISTORY: See list. PAST SURGICAL HISTORY: See list. MEDICATIONS: See list. ALLERGIES: See list. SOCIAL HISTORY: No illicit drug use. REVIEW OF SYSTEMS: CONSTITUTIONAL: Denies fever or chills. HEENT: Denies blurred vision, vision changes, or eye pain. Denies hemoptysis ENDOCRINE: Denies heat or cold intolerance. CARDIOVASCULAR: Denies chest pain or pressure. RESPIRATORY: No shortness of breath. GASTROINTESTINAL: Denies abdominal pain. Denies nausea or vomiting. NEURO: Denies history of seizures. PSYCH: No depression or suicidal ideation HEMATOLOGIC: Denies bleeding disorders. LYMPHATIC: The patient denies any lumps and bumps around the neck. GENITOURINARY: Denies any blood in urine or increased urinary frequency. MUSCULOSKELETAL: Denies myalgias. Denies joint swelling. Denies decreased range of motion beyond patients baseline. SKIN: Denies pruitis. Denies rash. PHYSICAL EXAM: VITAL SIGNS: Currently stable. GENERAL: Well-developed in no acute distress. HEENT: No sclera icterus. Extraocular movements grossly intact. Moist buccal mucosa. Head is atraumatic, normocephalic. Hears conversational speech. No nasal drainage. NECK: Supple without lymphadenopathy. CHEST: Non-labored respirations and equal bilateral excursions. CARDIOVASCULAR: Regular rate with regular rhythm. Palpable 2+ radial pulses. ABDOMEN: Soft. Nondistended. Nontender. MUSCULOSKELETAL: No clubbing, cyanosis or edema. NEUROLOGIC: No focal or lateralizing signs. Cranial nerves II through XII grossly intact. PSYCH: Appropriate affect. Alert and oriented to person, place and time. SKIN: Well perfused. Good skin turgor. ASSESSMENT: 1. Subxiphoid ventral midline hernia PLAN: 1. No inpatient surgical intervention advised. Patient is stable for discharge from a surgical perspective. She may follow up with Dr. Saldana outpatient. Nurse practitioner note has been reviewed by physician. Signing provider agrees with the documented findings, assessment, and plan of care. Past Medical History Past Medical History: Coronary Artery Disease (CAD), Deep Vein Thrombosis (DVT) , Myocardial Infarction (HI), Pulmonary Embolus (PE) Last Myocardial Infarction Date:: 09/2017 History of Any Multi-Drug Resistant Organisms: MRSA Year Discovered:: 2014 MDRO Source:: abscess abdomen Past Surgical History: Section, Cholecystectomy, Coronary Bypass/CABG, Heart Catheterization Additional Past Surgical History / Comment(s): right wrist surgery, carpal tunnel, MRSA S/P wound. left knee surgery Past Anesthesia/Blood Transfusion Reactions: No Reported Reaction Past Psychological History: No Psychological Hx Reported Smoking Status: Current every day smoker Past Alcohol Use History: None Reported Past Drug Use History: None Reported - Past Family History Mother Family Medical History: Cancer, CVA/TIA, Diabetes Mellitus, Myocardial Infarction (HI), Renal Disease Additional Family Medical History / Comment(s): uterine cancer, artificial valves Father Additional Family Medical History / Comment(s): PAD Brother(s) Family Medical History: Coronary Artery Disease (CAD), Diabetes Mellitus Additional Family Medical History / Comment(s): 2 HEART STENTS, issue with heart valve Sister(s) Additional Family Medical History / Comment(s): psych issues Daughter(s) Family Medical History: No Reported History Son(s) Family Medical History: No Reported History Medications and Allergies Home Medications Medication Instructions Recorded Confirmed Type Ranitidine HCl [Zantac] 150 mg PO BID 07/05/17 11/03/18 History Apixaban [Eliquis] 5 mg PO BID 07/15/18 11/03/18 History Metoprolol Tartrate 25 mg PO QAM 11/03/18 11/03/18 History Rosuvastatin Calcium [Crestor] 5 mg PO HS 11/03/18 11/03/18 History Varenicline Tartrate [Chantix 0.5 mg PO DIRECTED 11/03/18 11/03/18 History Starter Pack] Allergies Allergy/AdvReac Type Severity Reaction Status Date / Time adhesive Allergy Rash/Hives Verified 11/03/18 19:54 albuterol Allergy Anaphylaxis Verified 11/03/18 19:54 amoxicillin Allergy Anaphylaxis Verified 02/18/19 19:54 ampicillin Allergy Anaphylaxis Verified 11/03/18 19:54 azithromycin [From Zithromax] Allergy Anaphylaxis Verified 11/03/18 19:54 erythromycin base Allergy Anaphylaxis Verified 11/03/18 19:54 latex Allergy Rash/Hives Verified 11/03/18 19:54 penicillin V Allergy Anaphylaxis Verified 11/03/18 19:54 Surgical - Exam Vital Signs Temp Pulse Resp BP Pulse Ox 97.6 F 93 18 115/80 97 11/03/18 18:39 11/03/18 18:39 11/03/18 18:39 11/03/18 18:39 11/03/18 18:39 Results - Labs 11/03/18 18:54 11/03/18 18:54
[2018-11-05] MEDS: APIXABAN 5 MG TAB PO SCH (10:25)
[2018-11-05] MEDS: ASPIRIN 325 MG TAB PO SCH (10:25)
--- NOTE | 2018-11-05 13:09 | P.DS ---
Providers Date of admission: 11/03/18 21:40 Attending physician: Dorinda Cabral Consults: 11/03/18 21:34 Consult Physician Urgent Consulting Provider: [facility] Consult Reason/Comments: Chest Pain Do you want consulting provider notified?: Yes 11/04/18 17:50 Consult Physician Routine Consulting Provider: Luis Saldana Consult Reason/Comments: abnormal cat scan Do you want consulting provider notified?: Yes Primary care physician: Kecia [facility] Course: Diagnoses: Substernal abdominal ventral hernia History of coronary artery disease. Status post bypass surgery History of DVT and PE on [facility] course This is a pleasant 58 years old female with past medical history of coronary artery disease status post bypass surgery. She presents with epigastric pain. Patient was been evaluated by physical security specialist team and there was a concern that there is the he says in her sternal wound, under the recommendation of cardiothoracic surgery team, computed tomography scan of the chest was done which shows subxiphoid midline and muscular wall defect with herniating epigastric fat. General surgical team evaluated the patient for her ventral hernia and no surgical intervention is indicated, patient was cleared by both surgical and cardiology team for discharge. Patient's symptoms improved however she has some epigastric pain and tenderness however this was not affecting her eating or movement. She has normal bowel movements. And her pain is controlled. Patient felt ready to go home, and she was about to sign leaving AMA if she will not be discharged soon. Problems and management plan was discussed with the patient and she verbalized understanding and acceptance and She was found stable and can be discharged home in stable condition however she needs follow-up as an outpatient. pt states she will make her own appointment and she did not want medical staff to help her , pt was instructed to f/u with her pcp in one week as well as other consultants. prescription for imdur is provided for the pt , she did not need aspirin upon discharge as per cardiology . pt has all her home meds that she did not. Prescription for the Gen: patient is a AAOx3, no distress CVS: S1-S2, RRR, no murmur Lungs: B/L CTA, no wheezing Abdomen: soft, no distention, mild epigastric tenderness tenderness, positive bowel sounds Extremity: no leg edema or induration Time spent more than 35 minutes Patient Condition at Discharge: Serious Plan - Discharge Summary Discharge Rx Participant: Yes New Discharge Prescriptions: New Acetaminophen Tab [Tylenol] 650 mg PO Q4HR PRN tab PRN Reason: Fever and/ or MILD Pain Isosorbide Mononitrate ER [Imdur] 30 mg PO DAILY #30 tab.er.24h Continue Ranitidine HCl [Zantac] 150 mg PO BID Apixaban [Eliquis] 5 mg PO BID Varenicline Tartrate [Chantix Starter Pack] 0.5 mg PO DIRECTED Rosuvastatin Calcium [Crestor] 5 mg PO HS Metoprolol Tartrate 25 mg PO QAM Discharge Medication List Ranitidine HCl [Zantac] 150 mg PO BID 07/05/17 [History] Apixaban [Eliquis] 5 mg PO BID 07/15/18 [History] Metoprolol Tartrate 25 mg PO QAM 11/03/18 [History] Rosuvastatin Calcium [Crestor] 5 mg PO HS 11/03/18 [History] Varenicline Tartrate [Chantix Starter Pack] 0.5 mg PO DIRECTED 11/03/18 [ History] Acetaminophen Tab [Tylenol] 650 mg PO Q4HR PRN tab 11/05/18 [Rx] Isosorbide Mononitrate ER [Imdur] 30 mg PO DAILY #30 tab.er.24h 11/05/18 [Rx] Follow up Appointment(s)/Referral(s): Sonia Shetty MD [STAFF PHYSICIAN] - 1 Week Kecia Lopez MD [Primary Care Provider] - 3 Days Luis Saldana MD [STAFF PHYSICIAN] - 1 Week Ambulatory/Diagnostic Orders: Complete Blood Count w/diff [LAB.AMB] Time Frame: 3 Days, Location: None Selected Patient Instructions/Handouts: Chest Pain (GEN) Activity/Diet/Wound Care/Special Instructions: DIet: Low cholesterol Activity: limited till F/U Discharge Disposition: HOME SELF-CARE
== END 2018-11-05 13:10 | disposition home or self-care (01) ==
LOC: EC 18:34 → 1SOBS 21:40
PROVIDERS: ADMIT Hospitalist; ATTEND Hospitalist
DX: K43.9 Ventral hernia without obstruction or gangrene (principal); R07.2 Precordial pain; R06.02 Shortness of breath; R23.1 Pallor; R61 Generalized hyperhidrosis; R79.89 Other specified abnormal findings of blood chemistry; I25.10 Atherosclerotic heart disease of native coronary artery without angina pectoris; E78.5 Hyperlipidemia, unspecified; I10 Essential (primary) hypertension; Z95.1 Presence of aortocoronary bypass graft; Z86.711 Personal history of pulmonary embolism; Z86.718 Personal history of other venous thrombosis and embolism; Z79.01 Long term (current) use of anticoagulants; F17.210 Nicotine dependence, cigarettes, uncomplicated; E66.01 Morbid (severe) obesity due to excess calories; Z68.43 Body mass index [BMI] 50.0-59.9, adult; I25.2 Old myocardial infarction; Z86.14 Personal history of Methicillin resistant Staphylococcus aureus infection; Z90.49 Acquired absence of other specified parts of digestive tract; Z79.899 Other long term (current) drug therapy; Z88.1 Allergy status to other antibiotic agents; Z91.040 Latex allergy status; Z88.0 Allergy status to penicillin; Z88.8 Allergy status to other drugs, medicaments and biological substances; Z91.048 Other nonmedicinal substance allergy status; Z83.3 Family history of diabetes mellitus; Z82.3 Family history of stroke; Z80.49 Family history of malignant neoplasm of other genital organs; Z81.8 Family history of other mental and behavioral disorders
CPT/HCPCS: 36415; 71046; 71250; 80053; 80061; 82550; 82553; 83735; 84484; 84703; 85025; 85610; 85730; 93005; 93306; 94760; 96361; 96374; 96375; 96376; 99285

== ENCOUNTER 2019-03-13 16:31 | Emergency (ER) | payer BC ==
[2019-03-13 17:38] VITALS: RESP 18; TEMP 98.3
[2019-03-13 18:46] LABS: Basophils # (A) 0.1 k/uL (0-0.2); Basophils % (A) 1 %; Eosinophils # (A) 0.2 k/uL (0-0.7); Eosinophils % (A) 3 %; HCT 42.6 % (34.0-46.0); HGB 13.6 gm/dL (11.4-16.0); Lymphocytes # (A) 2.9 k/uL (1.0-4.8); Lymphocytes % (A) 32 %; MCH 28.6 pg (25.0-35.0); MCV 89.2 fL (80.0-100.0); Monocytes # (A) 0.2 k/uL (0-1.0); Monocytes % (A) 3 %; Neutrophils # (A) 5.4 k/uL (1.3-7.7); Neutrophils % (A) 61 %; Platelet Count 251 k/uL (150-450); RBC 4.77 m/uL (3.80-5.40); RDW 13.6 % (11.5-15.5); WBC 8.9 k/uL (3.8-10.6)
[2019-03-13 19:06] LABS: ALT 24 U/L (9-52); AST 22 U/L (14-36); African American GFR (CKD) >90 (>60 ml/min/1.73 sqM); Alkaline Phosphatase 78 U/L (38-126); Anion Gap 9 mmol/L; Blood Urea Nitrogen 13 mg/dL (7-17); Calcium 9.4 mg/dL (8.4-10.2); Carbon Dioxide 27 mmol/L (22-30); Chloride 104 mmol/L (98-107); Glucose 113 mg/dL (74-99); INR 0.9 (<1.2); Potassium 3.8 mmol/L (3.5-5.1); Prothrombin Time 9.7 sec (9.0-12.0); Sodium 140 mmol/L (137-145); Total Bilirubin 0.4 mg/dL (0.2-1.3); Total Protein 6.7 g/dL (6.3-8.2)
[2019-03-13 19:27] LABS: Partial Thromboplastin Time 19.7 sec (22.0-30.0)
--- NOTE | 2019-03-13 19:36 | ED ---
Extremity Problem HPI - General Chief complaint: Extremity Problem,Nontraumatic Stated complaint: left leg swelling Time Seen by Provider: 03/13/19 17:50 Source: patient, RN notes reviewed, old records reviewed Mode of arrival: ambulatory Limitations: no limitations - History of Present Illness Initial comments: Patient's 38-year-old female with history of DVTs and PEs. She is currently answer altered. She reports she is noncompliant with her medications. Has missed multiple doses past week. She states since Saturday she's noticed increased swelling and pain to her left leg. She states that she's noticed some redness as well. She's that she's had a slight cough. She denies any chest pain or shortness of breath but states she's had no symptoms when she's had prior PEs. - Related Data Home Medications Medication Instructions Recorded Confirmed Ranitidine HCl [Zantac] 150 mg PO BID 07/05/17 11/03/18 Apixaban [Eliquis] 5 mg PO BID 07/15/18 11/03/18 Metoprolol Tartrate 25 mg PO QAM 11/03/18 11/03/18 Rosuvastatin Calcium [Crestor] 5 mg PO HS 11/03/18 11/03/18 Varenicline Tartrate [Chantix 0.5 mg PO DIRECTED 11/03/18 11/03/18 Starter Pack] Previous Rx's Medication Instructions Recorded Acetaminophen Tab [Tylenol] 650 mg PO Q4HR PRN tab 11/05/18 Isosorbide Mononitrate ER [Imdur] 30 mg PO DAILY #30 tab.er.24h 11/05/18 Allergies Allergy/AdvReac Type Severity Reaction Status Date / Time adhesive Allergy Rash/Hives Verified 03/13/19 17:38 albuterol Allergy Anaphylaxis Verified 03/13/19 17:38 amoxicillin Allergy Anaphylaxis Verified 03/13/19 17:38 ampicillin Allergy Anaphylaxis Verified 03/13/19 17:38 azithromycin [From Zithromax] Allergy Anaphylaxis Verified 03/13/19 17:38 erythromycin base Allergy Anaphylaxis Verified 03/13/19 17:38 latex Allergy Rash/Hives Verified 03/13/19 17:38 penicillin V Allergy Anaphylaxis Verified 03/13/19 17:38 Review of Systems ROS Statement: Those systems with pertinent positive or pertinent negative responses have been documented in the HPI. ROS Other: All systems not noted in ROS Statement are negative. Past Medical History Past Medical History: Coronary Artery Disease (CAD), Deep Vein Thrombosis (DVT), Myocardial Infarction (LA), Pulmonary Embolus (PE) Last Myocardial Infarction Date:: 09/2017 History of Any Multi-Drug Resistant Organisms: MRSA Date of last positivie culture/infection: 2014 MDRO Source:: abscess abdomen Past Surgical History: Section, Cholecystectomy, Coronary Bypass/CABG, Heart Catheterization Additional Past Surgical History / Comment(s): right wrist surgery, carpal tunnel, MRSA S/P wound. left knee surgery Past Anesthesia/Blood Transfusion Reactions: No Reported Reaction Past Psychological History: No Psychological Hx Reported Smoking Status: Current every day smoker Past Alcohol Use History: None Reported Past Drug Use History: None Reported - Past Family History Mother Family Medical History: Cancer, CVA/TIA, Diabetes Mellitus, Myocardial Infarction (LA), Renal Disease Additional Family Medical History / Comment(s): uterine cancer, artificial valves Father Additional Family Medical History / Comment(s): PAD Brother(s) Family Medical History: Coronary Artery Disease (CAD), Diabetes Mellitus Additional Family Medical History / Comment(s): 2 HEART STENTS, issue with heart valve Sister(s) Additional Family Medical History / Comment(s): psych issues Daughter(s) Family Medical History: No Reported History Son(s) Family Medical History: No Reported History General Exam - General Exam Comments Initial Comments: Alert and oriented 38-year-old female. No distress. Limitations: no limitations General appearance: alert, in no apparent distress Head exam: Present: atraumatic, normocephalic, normal inspection Eye exam: Present: normal appearance, PERRL, EOMI. Absent: scleral icterus, conjunctival injection, periorbital swelling ENT exam: Present: normal exam, mucous membranes moist Neck exam: Present: normal inspection Respiratory exam: Present: normal lung sounds bilaterally. Absent: respiratory distress, wheezes, rales, rhonchi, stridor Cardiovascular Exam: Present: regular rate, normal rhythm, normal heart sounds. Absent: systolic murmur, diastolic murmur, rubs, gallop, clicks GI/Abdominal exam: Present: soft, normal bowel sounds. Absent: distended, tenderness, guarding, rebound, rigid Extremities exam: Present: normal inspection, full ROM, normal capillary refill, other (swelling and mild erythema over left lower extremity. ). Absent: tenderness, pedal edema, joint swelling, calf tenderness Back exam: Present: normal inspection Neurological exam: Present: alert, oriented X3, CN II-XII intact Psychiatric exam: Present: normal affect Skin exam: Present: warm, dry, intact, normal color. Absent: rash Course Vital Signs 03/13/19 03/13/19 17:36 21:38 Temperature 98.3 F Pulse Rate 100 78 Respiratory 18 18 Rate Blood Pressure 140/81 139/72 O2 Sat by Pulse 98 100 Oximetry Medical Decision Making - Medical Decision Making 38 year old female presents with Left lower extremity swelling, noncompliant with blood thinner meds due to chornic DvT and PE. Today US shows chronic non oculusvie dvt. Discussed CT is negative for PE. LAbs are normal. Discussed RICE leg, using compression stockings and to have close PCP follow up. Discussed to be complaint with blood thinner medication. - Lab Data Result diagrams: 03/13/19 18:30 03/13/19 18:30 Lab Results 03/13/19 03/13/19 03/13/19 Range/Units 18:30 18:30 18:30 WBC 8.9 (3.8-10.6) k/uL RBC 4.77 (3.80-5.40) m/uL Hgb 13.6 (11.4-16.0) gm/dL Hct 42.6 (34.0-46.0) % MCV 89.2 (80.0-100.0) fL MCH 28.6 (25.0-35.0) pg MCHC 32.0 (31.0-37.0) g/dL RDW 13.6 (11.5-15.5) % Plt Count 251 (150-450) k/uL Neutrophils % 61 % Lymphocytes % 32 % Monocytes % 3 % Eosinophils % 3 % Basophils % 1 % Neutrophils # 5.4 (1.3-7.7) k/uL Lymphocytes # 2.9 (1.0-4.8) k/uL Monocytes # 0.2 (0-1.0) k/uL Eosinophils # 0.2 (0-0.7) k/uL Basophils # 0.1 (0-0.2) k/uL PT 9.7 (9.0-12.0) sec INR 0.9 (<1.2) APTT 19.7 L (22.0-30.0) sec Sodium 140 (137-145) mmol/L Potassium 3.8 (3.5-5.1) mmol/L Chloride 104 (98-107) mmol/L Carbon Dioxide 27 (22-30) mmol/L Anion Gap 9 mmol/L BUN 13 (7-17) mg/dL Creatinine 0.66 (0.52-1.04) mg/dL Est GFR (CKD-EPI)AfAm >90 (>60 ml/min/1.73 sqM) Est GFR (CKD-EPI)NonAf >90 (>60 ml/min/1.73 sqM) Glucose 113 H (74-99) mg/dL Calcium 9.4 (8.4-10.2) mg/dL Total Bilirubin 0.4 (0.2-1.3) mg/dL AST 22 (14-36) U/L ALT 24 (9-52) U/L Alkaline Phosphatase 78 (38-126) U/L Total Protein 6.7 (6.3-8.2) g/dL Albumin 4.0 (3.5-5.0) g/dL Urine HCG, Qual (Not Detectd) 03/13/19 Range/Units 19:16 WBC (3.8-10.6) k/uL RBC (3.80-5.40) m/uL Hgb (11.4-16.0) gm/dL Hct (34.0-46.0) % MCV (80.0-100.0) fL MCH (25.0-35.0) pg MCHC (31.0-37.0) g/dL RDW (11.5-15.5) % Plt Count (150-450) k/uL Neutrophils % % Lymphocytes % % Monocytes % % Eosinophils % % Basophils % % Neutrophils # (1.3-7.7) k/uL Lymphocytes # (1.0-4.8) k/uL Monocytes # (0-1.0) k/uL Eosinophils # (0-0.7) k/uL Basophils # (0-0.2) k/uL PT (9.0-12.0) sec INR (<1.2) APTT (22.0-30.0) sec Sodium (137-145) mmol/L Potassium (3.5-5.1) mmol/L Chloride (98-107) mmol/L Carbon Dioxide (22-30) mmol/L Anion Gap mmol/L BUN (7-17) mg/dL Creatinine (0.52-1.04) mg/dL Est GFR (CKD-EPI)AfAm (>60 ml/min/1.73 sqM) Est GFR (CKD-EPI)NonAf (>60 ml/min/1.73 sqM) Glucose (74-99) mg/dL Calcium (8.4-10.2) mg/dL Total Bilirubin (0.2-1.3) mg/dL AST (14-36) U/L ALT (9-52) U/L Alkaline Phosphatase (38-126) U/L Total Protein (6.3-8.2) g/dL Albumin (3.5-5.0) g/dL Urine HCG, Qual Not Detected (Not Detectd) - Radiology Data Radiology results: report reviewed Doppler US is negativ for acute DVT, patient has chronic non occlusive thrombosis. CT chest angio is negative for PE. Disposition Clinical Impression: Chronic deep vein thrombosis (DVT) of left lower extremity Disposition: HOME SELF-CARE Condition: Good Instructions (If sedation given, give patient instructions): Deep Vein Thrombosis Prevention (ED) Additional Instructions: Patient advised to continue her blood thinner as already prescribed. Monitor the leg for any worsening swelling. Patient could use thigh-high compression stockings as well as have close follow-up with your primary care doctor. Also recommended keeping her feet up and elevated. Is patient prescribed a controlled substance at d/c from ED?: No Referrals: Kecia Lopez MD [Primary Care Provider] - 1-2 days Time of Disposition: 20:54
--- NOTE | 2019-03-13 19:55 | US ---
EXAMINATION TYPE: US venous doppler duplex LE LT DATE OF EXAM: 03/13/2019 6:55 PM COMPARISON: US CLINICAL HISTORY: Pain. Pt states left leg swelling/ Pt states history of DVT and PE/ pt states recen tly not taking blood thinners as properly prescribed SIDE PERFORMED: Left TECHNIQUE: The lower extremity deep venous system is examined utilizing real time linear array sonog zuhair with graded compression, doppler sonography and color-flow sonography. VESSELS IMAGED: External Iliac Vein (EIV) Common Femoral Vein Deep Femoral Vein Greater Saphenous Vein * Femoral Vein Popliteal Vein Small Saphenous Vein * Proximal Calf Veins (* superficial vessels) FINDINGS: Grayscale, color doppler, spectral doppler imaging performed of the deep veins of the lower extremities. There is normal flow, compressibility, vascular waveforms. IMPRESSION: 1. NEGATIVE FOR ACUTE DVT, LEFT LOWER EXTREMITY . 2. Chronic non-occlusive thrombus within left popliteal vein.
--- NOTE | 2019-03-13 20:43 | CT ---
EXAMINATION TYPE: CT chest angio for PE with contrast and with 3-D reconstruction renderings DATE OF EXAM: 03/13/2019 COMPARISON: None HISTORY: Limb swelling, dyspnea, pain CT DLP: 686.6 mGycm Automated exposure control for dose reduction was used. CONTRAST: 80 mL Isovue-370 intravenously. FINDINGS: LUNGS: The lungs are grossly clear, there is no concerning parenchymal mass or nodule identified. Th ere is no pleural effusion or pneumothorax seen. The tracheobronchial tree is patent. MEDIASTINUM: There is satisfactory enhancement of the pulmonary artery and its branches with no CT ev idence for pulmonary embolism. No acute aortic findings. There are no greater than 1 cm hilar or medi astinal lymph nodes. There is mild cardiomegaly but no pericardial effusion is seen. OTHER: No additional significant abnormality is seen. IMPRESSION: No acute process.
[2019-03-13 21:39] VITALS: BP 139/72; PULSE 78
== END 2019-03-13 21:39 | disposition home or self-care (01) ==
LOC: EC 16:31
DX: I82.502 Chronic embolism and thrombosis of unspecified deep veins of left lower extremity (principal); R05 Cough; I25.10 Atherosclerotic heart disease of native coronary artery without angina pectoris; I25.2 Old myocardial infarction; F17.200 Nicotine dependence, unspecified, uncomplicated; Z86.14 Personal history of Methicillin resistant Staphylococcus aureus infection; Z95.1 Presence of aortocoronary bypass graft; Z95.818 Presence of other cardiac implants and grafts; Z86.711 Personal history of pulmonary embolism; Z79.01 Long term (current) use of anticoagulants; Z79.899 Other long term (current) drug therapy; Z91.048 Other nonmedicinal substance allergy status; Z88.8 Allergy status to other drugs, medicaments and biological substances; Z88.0 Allergy status to penicillin; Z88.1 Allergy status to other antibiotic agents; Z91.040 Latex allergy status
CPT/HCPCS: 36415; 80053; 85025; 85610; 85730; 81025; 93971; 71275; 99284; Q9967

== ENCOUNTER 2019-05-20 17:35 | Observation (INO) | payer BC ==
--- NOTE | 2019-05-20 17:55 | ED ---
General Adult HPI - General Source: patient, RN notes reviewed Mode of arrival: ambulatory Limitations: no limitations <Josh Zhu - Last Filed: 05/20/19 19:33> <Mary Noriega - Last Filed: 05/25/19 15:14> - General Chief complaint: Chest Pain Stated complaint: SOB/chest pain Time Seen by Provider: 05/20/19 17:49 - History of Present Illness Initial comments: 39-year-old female with a past medical history of coronary artery disease, DVT, PE, OR presents to the emergency department for a chief complaint of chest pain. Patient states she is having left-sided squeezing chest pain that has been ongoing intermittently for the past 3-4 hours. States pain has subsided at this time. Patient has a strong cardiac history. She did have some associated shortness of breath earlier today but states this has also subsided. Patient did take note throat earlier today but states it did not help. Patient does admit to swelling in the left leg but states this always happens when she stands on her feet so this is not abnormal for her. Patient is on Eliquis but is noncompliant stating she only takes his "when she remembers."Patient has no other complaints at this time including shortness of breath, chest pain, abdominal pain, nausea or vomiting, headache, or visual changes. (Josh Zhu) - Related Data Home Medications Medication Instructions Recorded Confirmed Apixaban [Eliquis] 5 mg PO BID 07/15/18 05/20/19 Metoprolol Tartrate 25 mg PO BID 11/03/18 05/20/19 Nitroglycerin Sl Tabs [Nitrostat] 0.4 mg SUBLINGUAL Q5M PRN 05/20/19 05/20/19 Allergies Allergy/AdvReac Type Severity Reaction Status Date / Time adhesive Allergy Rash/Hives Verified 05/20/19 17:52 albuterol Allergy Anaphylaxis Verified 05/20/19 17:52 amoxicillin Allergy Anaphylaxis Verified 05/20/19 17:52 ampicillin Allergy Anaphylaxis Verified 05/20/19 17:52 azithromycin [From Zithromax] Allergy Anaphylaxis Verified 05/20/19 17:52 erythromycin base Allergy Anaphylaxis Verified 05/20/19 17:52 latex Allergy Rash/Hives Verified 05/20/19 17:52 penicillin V Allergy Anaphylaxis Verified 05/20/19 17:52 Review of Systems ROS Other: All systems not noted in ROS Statement are negative. <Josh Zhu P - Last Filed: 05/20/19 19:33> ROS Other: All systems not noted in ROS Statement are negative. <LeannMary Clayton - Last Filed: 05/25/19 15:14> ROS Statement: Those systems with pertinent positive or pertinent negative responses have been documented in the HPI. Past Medical History Past Medical History: Coronary Artery Disease (CAD), Deep Vein Thrombosis (DVT), Myocardial Infarction ([place]), Pulmonary Embolus (PE) Last Myocardial Infarction Date:: 09/2017 History of Any Multi-Drug Resistant Organisms: MRSA Date of last positivie culture/infection: 2014 MDRO Source:: abscess abdomen Past Surgical History: Section, Cholecystectomy, Coronary Bypass/CABG, Heart Catheterization Additional Past Surgical History / Comment(s): right wrist surgery, carpal tunnel, MRSA S/P wound. left knee surgery Past Anesthesia/Blood Transfusion Reactions: No Reported Reaction Past Psychological History: No Psychological Hx Reported Smoking Status: Current every day smoker Past Alcohol Use History: None Reported Past Drug Use History: None Reported - Past Family History Mother Family Medical History: Cancer, CVA/TIA, Diabetes Mellitus, Myocardial Infarction ([place]), Renal Disease Additional Family Medical History / Comment(s): uterine cancer, artificial valves Father Additional Family Medical History / Comment(s): PAD Brother(s) Family Medical History: Coronary Artery Disease (CAD), Diabetes Mellitus Additional Family Medical History / Comment(s): 2 HEART STENTS, issue with heart valve Sister(s) Additional Family Medical History / Comment(s): psych issues Daughter(s) Family Medical History: No Reported History Son(s) Family Medical History: No Reported History <Josh Zhu P - Last Filed: 05/20/19 19:33> General Exam Limitations: no limitations <Josh Zhu - Last Filed: 05/20/19 19:33> Course Vital Signs 05/20/19 05/20/19 05/20/19 17:41 18:28 19:46 Temperature 98.5 F Pulse Rate 87 73 83 Pulse Rate [ Pulse Oximetery ] Respiratory 18 18 18 Rate Blood Pressure 141/87 149/83 127/94 Blood Pressure [Left Arm] O2 Sat by Pulse 98 99 100 Oximetry 05/20/19 05/21/19 05/21/19 23:00 00:00 00:30 Temperature 97.7 F Pulse Rate 72 Pulse Rate [ 69 69 Pulse Oximetery ] Respiratory 18 17 17 Rate Blood Pressure 114/71 Blood Pressure 123/80 [Left Arm] O2 Sat by Pulse 95 95 Oximetry EKG Findings - EKG Comments: EKG Findings:: Normal sinus rhythm, ventricular rate 79, IN interval 152, QTC 428, compared to previous EKG, similar appearance. <Josh Zhu - Last Filed: 05/20/19 19:33> Medical Decision Making - Lab Data Result diagrams: 05/20/19 18:05 05/20/19 18:05 <Josh Zhu - Last Filed: 05/20/19 19:33> - Lab Data Result diagrams: 05/20/19 18:05 05/20/19 18:05 <Mary Noriega - Last Filed: 05/25/19 15:14> - Medical Decision Making 39-year-old female with strong cardiac history presents for left-sided squeezing chest pain intermittently for the past 3-4 hours. In October 2017 patient underwent bypass grafting secondary to a total occlusion of the LAD with sub sequent DVT and PE. Admits to associated shortness of breath, denies nausea or diaphoresis. Patient states pain has resolved at this time. She has been stable with stable vitals throughout her ER stay. On exam she does not have any reproducible tenderness in the area of pain. Does have some tenderness to the superior anterior left chest wall but states this is chronic after her CABG over one year ago. EKG does not show any evidence of ST elevation or depression. This was reviewed by myself and Dr. Gant. CBC and CMP are unremarkable. D- dimer was obtained as patient appears to be noncompliant on her anticoagulation therapy which is within normal limits at 0.93. Initial troponin is negative. Chest x-ray shows no active cardiopulmonary disease. At this time given patient's strong cardiac history she will be admitted to trend troponins and cardiology consultation. Patient's last cath was October 2017 and last echo was in September of this year. (Josh Zhu I was available for consultation in the emergency department. The history and physical exam was done by the midlevel provider. I was consulted for this patient's care. I reviewed the case and with the patients large cardiac history, I did recommend hospital admission. I discussed the case with Dr. Cabral who accepted admission of the patient. (Mary Noriega) - Lab Data Lab Results 05/20/19 05/20/19 05/20/19 Range/Units 18:05 18:05 18:05 WBC 9.8 (3.8-10.6) k/uL RBC 4.69 (3.80-5.40) m/uL Hgb 13.3 (11.4-16.0) gm/dL Hct 41.6 (34.0-46.0) % MCV 88.7 (80.0-100.0) fL MCH 28.4 (25.0-35.0) pg MCHC 32.1 (31.0-37.0) g/dL RDW 13.6 (11.5-15.5) % Plt Count 266 (150-450) k/uL Neutrophils % 64 % Lymphocytes % 29 % Monocytes % 3 % Eosinophils % 2 % Basophils % 1 % Neutrophils # 6.2 (1.3-7.7) k/uL Lymphocytes # 2.9 (1.0-4.8) k/uL Monocytes # 0.3 (0-1.0) k/uL Eosinophils # 0.2 (0-0.7) k/uL Basophils # 0.1 (0-0.2) k/uL PT (9.0-12.0) sec INR (<1.2) APTT (22.0-30.0) sec D-Dimer (<0.60) mg/L FEU Sodium 139 (137-145) mmol/L Potassium 4.4 (3.5-5.1) mmol/L Chloride 105 (98-107) mmol/L Carbon Dioxide 27 (22-30) mmol/L Anion Gap 7 mmol/L BUN 12 (7-17) mg/dL Creatinine 0.72 (0.52-1.04) mg/dL Est GFR (CKD-EPI)AfAm >90 (>60 ml/min/1.73 sqM) Est GFR (CKD-EPI)NonAf >90 (>60 ml/min/1.73 sqM) Glucose 111 H (74-99) mg/dL Calcium 9.5 (8.4-10.2) mg/dL Magnesium 1.9 (1.6-2.3) mg/dL Total Bilirubin 0.2 (0.2-1.3) mg/dL AST 22 (14-36) U/L ALT 16 (9-52) U/L Alkaline Phosphatase 76 (38-126) U/L CK-MB (CK-2) 0.5 (0.0-2.4) ng/mL Troponin I <0.012 (0.000-0.034) ng/mL NT-Pro-B Natriuret Pep pg/mL Total Protein 6.8 (6.3-8.2) g/dL Albumin 4.0 (3.5-5.0) g/dL Amylase 55 (30-110) U/L Lipase 150 (23-300) U/L Urine Color Urine Appearance (Clear) Urine pH (5.0-8.0) Ur Specific [place] (1.001-1.035) Urine Protein (Negative) Urine Glucose (UA) (Negative) Urine Ketones (Negative) Urine Blood (Negative) Urine Nitrite (Negative) Urine Bilirubin (Negative) Urine Urobilinogen (<2.0) mg/dL Ur Leukocyte Esterase (Negative) Urine RBC (0-5) /hpf Urine WBC (0-5) /hpf Ur Squamous Epith Cells (0-4) /hpf Urine Bacteria (None) /hpf Urine Mucus (None) /hpf Urine HCG, Qual (Not Detectd) 05/20/19 05/20/19 05/20/19 Range/Units 18:05 18:05 18:05 WBC (3.8-10.6) k/uL RBC (3.80-5.40) m/uL Hgb (11.4-16.0) gm/dL Hct (34.0-46.0) % MCV (80.0-100.0) fL MCH (25.0-35.0) pg MCHC (31.0-37.0) g/dL RDW (11.5-15.5) % Plt Count (150-450) k/uL Neutrophils % % Lymphocytes % % Monocytes % % Eosinophils % % Basophils % % Neutrophils # (1.3-7.7) k/uL Lymphocytes # (1.0-4.8) k/uL Monocytes # (0-1.0) k/uL Eosinophils # (0-0.7) k/uL Basophils # (0-0.2) k/uL PT 9.5 (9.0-12.0) sec INR 0.9 (<1.2) APTT 22.3 (22.0-30.0) sec D-Dimer 0.39 (<0.60) mg/L FEU Sodium (137-145) mmol/L Potassium (3.5-5.1) mmol/L Chloride (98-107) mmol/L Carbon Dioxide (22-30) mmol/L Anion Gap mmol/L BUN (7-17) mg/dL Creatinine (0.52-1.04) mg/dL Est GFR (CKD-EPI)AfAm (>60 ml/min/1.73 sqM) Est GFR (CKD-EPI)NonAf (>60 ml/min/1.73 sqM) Glucose (74-99) mg/dL Calcium (8.4-10.2) mg/dL Magnesium (1.6-2.3) mg/dL Total Bilirubin (0.2-1.3) mg/dL AST (14-36) U/L ALT (9-52) U/L Alkaline Phosphatase (38-126) U/L CK-MB (CK-2) (0.0-2.4) ng/mL Troponin I (0.000-0.034) ng/mL NT-Pro-B Natriuret Pep 147 pg/mL Total Protein (6.3-8.2) g/dL Albumin (3.5-5.0) g/dL Amylase (30-110) U/L Lipase (23-300) U/L Urine Color Urine Appearance (Clear) Urine pH (5.0-8.0) Ur Specific [place] (1.001-1.035) Urine Protein (Negative) Urine Glucose (UA) (Negative) Urine Ketones (Negative) Urine Blood (Negative) Urine Nitrite (Negative) Urine Bilirubin (Negative) Urine Urobilinogen (<2.0) mg/dL Ur Leukocyte Esterase (Negative) Urine RBC (0-5) /hpf Urine WBC (0-5) /hpf Ur Squamous Epith Cells (0-4) /hpf Urine Bacteria (None) /hpf Urine Mucus (None) /hpf Urine HCG, Qual Not Detected (Not Detectd) 05/20/19 Range/Units 18:05 WBC (3.8-10.6) k/uL RBC (3.80-5.40) m/uL Hgb (11.4-16.0) gm/dL Hct (34.0-46.0) % MCV (80.0-100.0) fL MCH (25.0-35.0) pg MCHC (31.0-37.0) g/dL RDW (11.5-15.5) % Plt Count (150-450) k/uL Neutrophils % % Lymphocytes % % Monocytes % % Eosinophils % % Basophils % % Neutrophils # (1.3-7.7) k/uL Lymphocytes # (1.0-4.8) k/uL Monocytes # (0-1.0) k/uL Eosinophils # (0-0.7) k/uL Basophils # (0-0.2) k/uL PT (9.0-12.0) sec INR (<1.2) APTT (22.0-30.0) sec D-Dimer (<0.60) mg/L FEU Sodium (137-145) mmol/L Potassium (3.5-5.1) mmol/L Chloride (98-107) mmol/L Carbon Dioxide (22-30) mmol/L Anion Gap mmol/L BUN (7-17) mg/dL Creatinine (0.52-1.04) mg/dL Est GFR (CKD-EPI)AfAm (>60 ml/min/1.73 sqM) Est GFR (CKD-EPI)NonAf (>60 ml/min/1.73 sqM) Glucose (74-99) mg/dL Calcium (8.4-10.2) mg/dL Magnesium (1.6-2.3) mg/dL Total Bilirubin (0.2-1.3) mg/dL AST (14-36) U/L ALT (9-52) U/L Alkaline Phosphatase (38-126) U/L CK-MB (CK-2) (0.0-2.4) ng/mL Troponin I (0.000-0.034) ng/mL NT-Pro-B Natriuret Pep pg/mL Total Protein (6.3-8.2) g/dL Albumin (3.5-5.0) g/dL Amylase (30-110) U/L Lipase (23-300) U/L Urine Color Yellow Urine Appearance Clear (Clear) Urine pH 6.0 (5.0-8.0) Ur Specific [place] 1.016 (1.001-1.035) Urine Protein Negative (Negative) Urine Glucose (UA) Negative (Negative) Urine Ketones Negative (Negative) Urine Blood Negative (Negative) Urine Nitrite Negative (Negative) Urine Bilirubin Negative (Negative) Urine Urobilinogen <2.0 (<2.0) mg/dL Ur Leukocyte Esterase Trace H (Negative) Urine RBC 4 (0-5) /hpf Urine WBC 2 (0-5) /hpf Ur Squamous Epith Cells 3 (0-4) /hpf Urine Bacteria Rare H (None) /hpf Urine Mucus Rare H (None) /hpf Urine HCG, Qual (Not Detectd) Disposition Is patient prescribed a controlled substance at d/c from ED?: No Time of Disposition: 19:13 <Josh Zhu P - Last Filed: 05/20/19 19:33> <Mary Noriega - Last Filed: 05/25/19 15:14> Clinical Impression: Chest pain Disposition: ADMITTED IP TO THIS HOSP Condition: Fair
[2019-05-20] MEDS ORDERED: SODIUM CHLORIDE 0.9% 500 ML 500 ML IV STA (18:04)
[2019-05-20 18:38] LABS: Basophils # (A) 0.1 k/uL (0-0.2); Basophils % (A) 1 %; Eosinophils # (A) 0.2 k/uL (0-0.7); Eosinophils % (A) 2 %; HCT 41.6 % (34.0-46.0); HGB 13.3 gm/dL (11.4-16.0); Lymphocytes # (A) 2.9 k/uL (1.0-4.8); Lymphocytes % (A) 29 %; MCH 28.4 pg (25.0-35.0); MCHC 32.1 g/dL (31.0-37.0); MCV 88.7 fL (80.0-100.0); Mean Platelet Volume 6.7; Monocytes # (A) 0.3 k/uL (0-1.0); Monocytes % (A) 3 %; Neutrophils # (A) 6.2 k/uL (1.3-7.7); Neutrophils % (A) 64 %; Platelet Count 266 k/uL (150-450); RBC 4.69 m/uL (3.80-5.40); RDW 13.6 % (11.5-15.5); WBC 9.8 k/uL (3.8-10.6)
[2019-05-20 18:43] LABS: Appearance,Urine Clear (Clear); Bacteria,Urine Rare /hpf; Bilirubin,Urine Negative (Negative); Blood,Urine Negative (Negative); Color,Urine Yellow; Glucose,Urine (UA) Negative (Negative); Ketones,Urine Negative (Negative); Leukocyte Esterase,Urine Trace (Negative); Mucus,Urine Rare /hpf; Nitrite,Urine Negative (Negative); Protein,Urine Negative (Negative); RBC,Urine 4 /hpf (0-5); Specific Gravity,Urine 1.016 (1.001-1.035); Squamous Epithelial Cell,Urine 3 /hpf (0-4); Urobilinogen,Urine <2.0 mg/dL (<2.0); WBC,Urine 2 /hpf (0-5)
[2019-05-20 18:46] LABS: ALT 16 U/L (9-52); AST 22 U/L (14-36); African American GFR (CKD) >90 (>60 ml/min/1.73 sqM); Alkaline Phosphatase 76 U/L (38-126); Amylase 55 U/L (30-110); Anion Gap 7 mmol/L; Blood Urea Nitrogen 12 mg/dL (7-17); Calcium 9.5 mg/dL (8.4-10.2); Carbon Dioxide 27 mmol/L (22-30); Chloride 105 mmol/L (98-107); Glucose 111 mg/dL (74-99); Magnesium 1.9 mg/dL (1.6-2.3); Potassium 4.4 mmol/L (3.5-5.1); Sodium 139 mmol/L (137-145); Total Bilirubin 0.2 mg/dL (0.2-1.3); Total Protein 6.8 g/dL (6.3-8.2)
[2019-05-20 18:53] LABS: D-Dimer 0.39 mg/L FEU (<0.60); INR 0.9 (<1.2); Partial Thromboplastin Time 22.3 sec (22.0-30.0); Prothrombin Time 9.5 sec (9.0-12.0)
--- NOTE | 2019-05-20 19:00 | XR ---
EXAMINATION TYPE: XR chest 2V DATE OF EXAM: 05/20/2019 COMPARISON: 11/03/2018 HISTORY: Pain TECHNIQUE: Frontal and lateral views of the chest are obtained. FINDINGS: Heart and mediastinum are normal. Lungs are clear of infiltrate. There is no heart failure . There are sternal wires. Costophrenic angles are clear. Bony thorax is intact. IMPRESSION: No active cardiopulmonary disease. No change.
[2019-05-20 19:09] LABS: Creatine Kinase MB 0.5 ng/mL (0.0-2.4); Troponin I <0.012 ng/mL (0.000-0.034)
[2019-05-20] MEDS ORDERED: NITROGLYCERIN SL TABS 0.4 MG TAB SUBLINGUAL PRN (19:34)
[2019-05-20] MEDS ORDERED: ASPIRIN 325 MG TAB PO STA (19:36)
[2019-05-20] MEDS ORDERED: APIXABAN 5 MG TAB PO ONE (21:00)
[2019-05-20] MEDS ORDERED: METOPROLOL TARTRATE 25 MG TAB PO ONE (21:00)
[2019-05-20] MEDS ORDERED: IBUPROFEN 600 MG TAB PO STA (22:13)
[2019-05-21 08:17] LABS: Cholesterol 166 mg/dL (<200); HDL Cholesterol 35 mg/dL (40-60); LDL Cholesterol,Calculated 100 mg/dL (0-99); Triglycerides 156 mg/dL (<150)
[2019-05-21 08:24] VITALS: BP 107/74; PULSE 80; RESP 16; TEMP 97.4
[2019-05-21] MEDS ORDERED: ASPIRIN 325 MG TAB PO SCH (09:00)
--- NOTE | 2019-05-21 09:23 | P.CRDCN ---
History of Present Illness History of present illness: This is a pleasant 39-year-old female past medical history significant for coronary artery disease status post single-vessel bypass, DVT and PE maintained on long-term anticoagulation, dyslipidemia and hypertension. She also unfortunately has a daily smoker. She underwent bypass surgery in 10/2017. Initially she underwent a heart catheterization at [facility] revealing a lesion in the mid LAD with evidence of intrinsic dissection. Subsequently thereafter she went back to the hospital with significant rise in her troponin and had a total occlusion of the LAD requiring bypass with a BLUNT to LAD. Postprocedure she developed DVT and PE with right ventricular enlargement She follows in the office with Dr. Shetty. We have been asked to see her in consultation secondary to chest discomfort. She states yesterday while walking in to [facility] she felt a squeezing pain in the epigastric region. This occurred intermittently over the course of a few hours and was associated with difficulty in taking a deep breath. She also at one point yesterday felt mild nausea. The discomfort did not radiate to the arm, back, neck or jaw the symptoms are not exacerbated by activity or exertion. There was no associated vomiting, diaphoresis, palpitations or dizziness. She is seen and examined resting comfortably sitting up in bed. She continues to have reproducible tenderness to the epigastric region. EKG reveals sinus mechanism heart rate of 79, nonspecific T-wave flattening noted. Chest x-ray is negative for an acute cardiopulmonary process. Laboratory data reviewed, WBC 9.8, hemoglobin 13.3, platelets 266, d-dimer 0.39, sodium 139, potassium 4.4, creatinine 0.72, magnesium 1.9, cardiac enzymes negative 3, LDL 100 and proBNP 147. Current cardiac medications include Lopressor 25 mg twice a day and Eliquis 5 mg twice a day. Most recent echocardiogram obtained October 2018 reveals preserved LV systolic function with ejection fraction 55-60% and mild pulmonary hypertension with an RVSP of 41 mmHg. At the time of my exam: CONSTITUTIONAL: Denies fever. Denies chills. EYES: Denies blurred vision. Denies vision changes. Denies eye pain. EARS, NOSE, MOUTH & THROAT: Denies headache. Denies sore throat. Denies ear pain. CARDIOVASCULAR: Denies chest pain. Denies shortness of breath. Denies orthopnea. Denies PND. Denies palpitations. RESPIRATORY: Denies cough. GASTROINTESTINAL: Complains of reproducible epigastric tenderness. Denies abdominal pain. Denies diarrhea. Denies constipation. Denies nausea. Denies vomiting. MUSCULOSKELETAL: Denies myalgias. INTEGUMENTARY: Denies pruitis. Denies rash. NEUROLOGIC: Denies numbness. Denies tingling. Denies weakness. PSYCHIATRIC: Denies anxiety. Denies depression. ENDOCRINE: Denies fatigue. Denies weight change. Denies polydipsia. Denies polyurina. GENITOURINARY: Denies burning, hematuria or urgency with micturation. HEMATOLOGIC: Denies history of anemia. Denies bleeding. Blood pressure 107/74 heart rate 88 afebrile maintaining oxygen saturation on room air GENERAL: This is a 39-year-old female in no apparent distress at the time of my examination. Morbidly obese. HEENT: Head is atraumatic, normocephalic. Pupils are equal, round. Sclerae anicteric. Conjunctivae are clear. Mucous membranes of the mouth are moist. Neck is supple. There is no jugular venous distention. No carotid bruit is heard. LUNGS: Clear to auscultation no wheezes, rales or rhonchi. No chest wall tenderness is noted on palpation or with deep breathing. HEART: Regular rate and rhythm without murmurs, rubs or gallops. S1 and S2 heard. ABDOMEN: Soft, nontender. Bowel sounds are heard. No organomegaly noted. EXTREMITIES: No evidence of peripheral edema and no calf tenderness noted. VASCULAR: Radial and dorsalis pedis pulses palpated, no evidence of clubbing. NEUROLOGIC: Patient is awake, alert and oriented x3. ASSESSMENT Chest pain, atypical for angina. An acute coronary event has been ruled out. History of coronary artery disease status post single-vessel bypass October 2017 with a BLUNT to LAD Dyslipidemia Hypertension History of PE and DVT in the past maintained on long-term anticoagulation Morbid obesity, BMI 51 PLAN An acute coronary event has been ruled out. Pain is reproducible and tender to palpation. Patient does have a history of a hernia at the base of her incision from her bypass. She struggles with pain in this area frequently. Recommend getting up and walking around, increase activity. Follow-up in the office with Dr. Shetty in 2 weeks. Recommend lifestyle modifications for lowering of LDL cholesterol as well as weight loss. Resume rosuvastatin on discharge. Thank you kindly for this consultation. Nurse Practitioner note has been reviewed, I agree with a documented findings and plan of care. Patient was seen and examined. Past Medical History Past Medical History: Coronary Artery Disease (CAD), Chest Pain / Angina, Deep Vein Thrombosis (DVT), Hyperlipidemia, Myocardial Infarction ([place]), Pulmonary Embolus (PE) Last Myocardial Infarction Date:: 09/2017 History of Any Multi-Drug Resistant Organisms: MRSA Date of last positivie culture/infection: 2014 MDRO Source:: abscess abdomen Past Surgical History: Section, Cholecystectomy, Coronary Bypass/CABG, Heart Catheterization Additional Past Surgical History / Comment(s): right wrist surgery, carpal tunnel, MRSA S/P wound. left knee surgery Past Anesthesia/Blood Transfusion Reactions: No Reported Reaction Past Psychological History: No Psychological Hx Reported Smoking Status: Current every day smoker Past Alcohol Use History: None Reported Past Drug Use History: None Reported - Past Family History Mother Family Medical History: Cancer, CVA/TIA, Diabetes Mellitus, Myocardial Infarction ([place]), Renal Disease Additional Family Medical History / Comment(s): uterine cancer, artificial valves Father Additional Family Medical History / Comment(s): PAD Brother(s) Family Medical History: Coronary Artery Disease (CAD), Diabetes Mellitus Additional Family Medical History / Comment(s): 2 HEART STENTS, issue with heart valve Sister(s) Additional Family Medical History / Comment(s): psych issues Daughter(s) Family Medical History: No Reported History Son(s) Family Medical History: No Reported History Medications and Allergies Home Medications Medication Instructions Recorded Confirmed Type Apixaban [Eliquis] 5 mg PO BID 07/15/18 05/20/19 History Metoprolol Tartrate 25 mg PO BID 11/03/18 05/20/19 History Nitroglycerin Sl Tabs [Nitrostat] 0.4 mg SUBLINGUAL Q5M PRN 05/20/19 05/20/19 History Allergies Allergy/AdvReac Type Severity Reaction Status Date / Time adhesive Allergy Rash/Hives Verified 05/20/19 17:52 albuterol Allergy Anaphylaxis Verified 05/20/19 17:52 amoxicillin Allergy Anaphylaxis Verified 05/20/19 17:52 ampicillin Allergy Anaphylaxis Verified 05/20/19 17:52 azithromycin [From Zithromax] Allergy Anaphylaxis Verified 05/20/19 17:52 erythromycin base Allergy Anaphylaxis Verified 05/20/19 17:52 latex Allergy Rash/Hives Verified 05/20/19 17:52 penicillin V Allergy Anaphylaxis Verified 05/20/19 17:52 Physical Exam Vitals: Vital Signs Temp Pulse Pulse Resp BP BP Pulse Ox 05/21/19 04:00 97.9 F 67 17 121/81 93 L 05/21/19 00:30 69 17 05/21/19 00:00 97.7 F 69 17 123/80 95 05/20/19 23:00 72 18 114/71 95 05/20/19 19:46 83 18 127/94 100 05/20/19 18:28 73 18 149/83 99 05/20/19 17:41 98.5 F 87 18 141/87 98 Intake and Output 05/20/19 05/21/19 05/21/19 22:59 06:59 14:59 Other: Voiding Method Toilet # Voids 1 Weight 131.542 kg Results 05/20/19 18:05 05/20/19 18:05 Cardiac Enzymes 05/20/19 05/20/19 05/21/19 Range/Units 18:05 18:05 00:20 AST 22 (14-36) U/L CK-MB (CK-2) 0.5 (0.0-2.4) ng/mL Troponin I <0.012 0.018 (0.000-0.034) ng/mL 05/21/19 Range/Units 05:51 AST (14-36) U/L CK-MB (CK-2) (0.0-2.4) ng/mL Troponin I 0.030 (0.000-0.034) ng/mL Coagulation 05/20/19 Range/Units 18:05 PT 9.5 (9.0-12.0) sec APTT 22.3 (22.0-30.0) sec CBC 05/20/19 Range/Units 18:05 WBC 9.8 (3.8-10.6) k/uL RBC 4.69 (3.80-5.40) m/uL Hgb 13.3 (11.4-16.0) gm/dL Hct 41.6 (34.0-46.0) % Plt Count 266 (150-450) k/uL Comprehensive Metabolic Panel 05/20/19 Range/Units 18:05 Sodium 139 (137-145) mmol/L Potassium 4.4 (3.5-5.1) mmol/L Chloride 105 (98-107) mmol/L Carbon Dioxide 27 (22-30) mmol/L BUN 12 (7-17) mg/dL Creatinine 0.72 (0.52-1.04) mg/dL Glucose 111 H (74-99) mg/dL Calcium 9.5 (8.4-10.2) mg/dL AST 22 (14-36) U/L ALT 16 (9-52) U/L Alkaline Phosphatase 76 (38-126) U/L Total Protein 6.8 (6.3-8.2) g/dL Albumin 4.0 (3.5-5.0) g/dL Current Medications Generic Name Dose Route Start Last Admin Trade Name Freq PRN Reason Stop Dose Admin Aspirin 325 mg 05/21/19 09:00 Aspirin PO DAILY MERRILL Nitroglycerin 0.4 mg 05/20/19 19:34 Nitrostat SUBLINGUAL Q5M PRN Chest Pain Intake and Output 05/20/19 05/21/19 05/21/19 22:59 06:59 14:59 Other: Voiding Method Toilet # Voids 1 Weight 131.542 kg 05/20/19 18:05 05/20/19 18:05
[2019-05-21] MEDS ORDERED: APIXABAN 5 MG TAB PO SCH (09:30)
[2019-05-21] MEDS ORDERED: METOPROLOL TARTRATE 25 MG TAB PO SCH (09:30)
[2019-05-21] MEDS ORDERED: ATORVASTATIN 40 MG TAB PO SCH (09:30)
--- NOTE | 2019-05-21 11:59 | P.HPIM ---
History of Present Illness Diagnoses Chest pain, coronary artery syndrome has been ruled out. Completely resolved Anxiety History of coronary artery disease status post CABG History of DVT/PE on Eliquis Hyperlipidemia Obesity This is combined H&P and discharge summary This is a pleasant 59 years old female with past medical history of coronary artery disease status post CABG and cardiac cath, DVT/PE on Eliquis, hyperlipidemia, who presents because of chest pain, which is completely resolved now. Patient has already been evaluated by dental officer and they recommended acute coronary event has been ruled out, and her pain is reproducible and tender to palpation, could be related to her hernia at the bypass surgery site. Also been instructed patient to walk in the hallway and if she is doing well she can be discharged. Patient is tolerated exertion with no chest pain or dyspnea. She had back to her baseline. Her chest pain is resolved like 0/10 in severity Patient denies other symptoms. She denies dyspnea. No abdominal pain. No nausea vomiting. No change in urine or bowel habits. No fever. Patient feels she is ready to be discharged home Patient was cleared for discharge by cardiology team Problems and management plan were discussed with the patient and he verbalized understanding and acceptance Patient was found stable and can be discharged home however he needs follow-up as an outpatient. Patient was instructed to follow up with her PCP and dental officer. Patient agrees with the appointments made for her with Dr. Shetty on 02/22/1619 at 9:30 AM and said she will follow up. Patient wants to take her on statin, and she is going to speak with Dr. Shetty about it and if she needs to change it. Patient's wanted a note to go back to work on Saturday which is provided for her. Patient instructed to follow with her PCP in one week for further instructions Gen: patient is a AAOx3, no distress CVS: S1-S2, RRR, no murmur Lungs: B/L CTA, no wheezing Abdomen: soft, no distention, no tenderness, positive bowel sounds Extremity: no leg edema or induration Time spent more than 35 minutes Past Medical History Past Medical History: Coronary Artery Disease (CAD), Chest Pain / Angina, Deep Vein Thrombosis (DVT), Hyperlipidemia, Myocardial Infarction (ND), Pulmonary Embolus (PE) Last Myocardial Infarction Date:: 09/2017 History of Any Multi-Drug Resistant Organisms: MRSA Date of last positivie culture/infection: 2015 MDRO Source:: abscess abdomen Past Surgical History: Section, Cholecystectomy, Coronary Bypass/CABG, Heart Catheterization Additional Past Surgical History / Comment(s): right wrist surgery, carpal tunnel, MRSA S/P wound. left knee surgery Past Anesthesia/Blood Transfusion Reactions: No Reported Reaction Past Psychological History: No Psychological Hx Reported Smoking Status: Current every day smoker Past Alcohol Use History: None Reported Past Drug Use History: None Reported - Past Family History Mother Family Medical History: Cancer, CVA/TIA, Diabetes Mellitus, Myocardial Infarction (ND), Renal Disease Additional Family Medical History / Comment(s): uterine cancer, artificial valves Father Additional Family Medical History / Comment(s): PAD Brother(s) Family Medical History: Coronary Artery Disease (CAD), Diabetes Mellitus Additional Family Medical History / Comment(s): 2 HEART STENTS, issue with heart valve Sister(s) Additional Family Medical History / Comment(s): psych issues Daughter(s) Family Medical History: No Reported History Son(s) Family Medical History: No Reported History Medications and Allergies Home Medications Medication Instructions Recorded Confirmed Type Apixaban [Eliquis] 5 mg PO BID 07/15/18 05/20/19 History Metoprolol Tartrate 25 mg PO BID 11/03/18 05/20/19 History Nitroglycerin Sl Tabs [Nitrostat] 0.4 mg SUBLINGUAL Q5M PRN 05/20/19 05/20/19 History Allergies Allergy/AdvReac Type Severity Reaction Status Date / Time adhesive Allergy Rash/Hives Verified 05/20/19 17:52 albuterol Allergy Anaphylaxis Verified 05/20/19 17:52 amoxicillin Allergy Anaphylaxis Verified 05/20/19 17:52 ampicillin Allergy Anaphylaxis Verified 05/20/19 17:52 azithromycin [From Zithromax] Allergy Anaphylaxis Verified 05/20/19 17:52 erythromycin base Allergy Anaphylaxis Verified 05/20/19 17:52 latex Allergy Rash/Hives Verified 05/20/19 17:52 penicillin V Allergy Anaphylaxis Verified 05/20/19 17:52 Physical Exam Vitals: Vital Signs Temp Pulse Pulse Resp BP BP BP 05/21/19 07:30 97.4 F L 80 16 107/74 05/21/19 04:00 97.9 F 67 17 121/81 05/21/19 00:30 69 17 05/21/19 00:00 97.7 F 69 17 123/80 05/20/19 23:00 72 18 114/71 05/20/19 19:46 83 18 127/94 05/20/19 18:28 73 18 149/83 05/20/19 17:41 98.5 F 87 18 141/87 Pulse Ox 05/21/19 07:30 96 05/21/19 04:00 93 L 05/21/19 00:30 05/21/19 00:00 95 05/20/19 23:00 95 05/20/19 19:46 100 05/20/19 18:28 99 05/20/19 17:41 98 Intake and Output 05/20/19 05/21/19 05/21/19 22:59 06:59 14:59 Other: Voiding Method Toilet # Voids 1 Weight 131.542 kg Results CBC & Chem 7: 05/20/19 18:05 05/20/19 18:05 Labs: Abnormal Lab Results - Last 24 Hours (Table) 05/20/19 05/20/19 05/21/19 Range/Units 18:05 18:05 05:27 Glucose 111 H (74-99) mg/dL Triglycerides 156 H (<150) mg/dL LDL Cholesterol, Calc 100 H (0-99) mg/dL HDL Cholesterol 35 L (40-60) mg/dL Ur Leukocyte Esterase Trace H (Negative) Urine Bacteria Rare H (None) /hpf Urine Mucus Rare H (None) /hpf Thrombosis Risk Factor Assmnt - Choose All That Apply Any of the Below Risk Factors Present?: Yes Each Factor Represents 1 point: Obesity (BMI >25), Swollen legs (current) Other Risk Factors: Yes Each Risk Factor Represents 3 Points: History of DVT/PE Other congenital or acquired thrombophilia - If yes, enter type in comment: No Thrombosis Risk Factor Assessment Total Risk Factor Score: 5 Thrombosis Risk Factor Assessment Level: High Risk
[2019-05-22] MEDS ORDERED: ASPIRIN 81 MG PO SCH (09:00)
== END 2019-05-21 12:18 | disposition home or self-care (01) ==
LOC: EC 17:35 → 1SOBS 20:42
PROVIDERS: ADMIT Hospitalist; ATTEND Hospitalist
DX: R07.89 Other chest pain (principal); R10.13 Epigastric pain; R06.02 Shortness of breath; R06.00 Dyspnea, unspecified; R11.0 Nausea; F41.9 Anxiety disorder, unspecified; E78.5 Hyperlipidemia, unspecified; I10 Essential (primary) hypertension; I25.10 Atherosclerotic heart disease of native coronary artery without angina pectoris; K46.9 Unspecified abdominal hernia without obstruction or gangrene; M79.89 Other specified soft tissue disorders; I25.2 Old myocardial infarction; F17.200 Nicotine dependence, unspecified, uncomplicated; Z79.899 Other long term (current) drug therapy; Z95.1 Presence of aortocoronary bypass graft; Z86.711 Personal history of pulmonary embolism; Z86.718 Personal history of other venous thrombosis and embolism; Z86.14 Personal history of Methicillin resistant Staphylococcus aureus infection; Z90.49 Acquired absence of other specified parts of digestive tract; Z79.01 Long term (current) use of anticoagulants; E66.01 Morbid (severe) obesity due to excess calories; Z68.43 Body mass index [BMI] 50.0-59.9, adult; Z88.1 Allergy status to other antibiotic agents; Z91.040 Latex allergy status; Z88.0 Allergy status to penicillin; Z88.8 Allergy status to other drugs, medicaments and biological substances; Z91.048 Other nonmedicinal substance allergy status; T45.516A Underdosing of anticoagulants, initial encounter; Z82.49 Family history of ischemic heart disease and other diseases of the circulatory system; Z82.3 Family history of stroke; Z83.3 Family history of diabetes mellitus; Z80.49 Family history of malignant neoplasm of other genital organs; Z84.1 Family history of disorders of kidney and ureter; Z81.8 Family history of other mental and behavioral disorders
CPT/HCPCS: 99285; 36415; 93005; 85379; 83880; 80061; 80053; 82150; 82553; 83690; 83735; 84484 ×2; 85025; 85610; 85730; 81001; 81025; 71046; G0378 ×2